=== PATIENT | female | born 1995 | race Hispanic/Latino ===

== ENCOUNTER 2016-11-10 13:34 | Inpatient (IN) | payer OTHER ==
[2016-11-10 13:34] VITALS: BMI 25.6
[2016-11-10] MEDS ORDERED: Sodium Chloride 0.9% 1,000 ML IV STA (14:36)
[2016-11-10 14:52] LABS: RBC URINE 2 /hpf (0-3); URINE BILIRUBIN NEGATIVE (NEGATIVE); URINE BLOOD NEGATIVE (NEGATIVE); URINE COLOR AMBER (YELLOW); URINE GLUCOSE (UA) NEG (Normal); URINE KETONE NEGATIVE (NEGATIVE); URINE LEUKOCYTE ESTERASE LARGE Leu/uL (Negative); URINE PROTEIN 100 mg/dL (NEGATIVE); URINE UROBILINOGEN 0.2-1.0 mg/dL (0.2-1.0); WBC URINE 14 /hpf (0-5)
[2016-11-10 15:09] LABS: VENOUS BLOOD GAS BASE EXCESS 0.5 mmol/L (0.0-2.0); VENOUS BLOOD GAS PCO2 50 mmHg (40-60); VENOUS BLOOD PH 7.34 (7.32-7.43)
[2016-11-10 15:23] LABS: ALB/GLOB RATIO 1.2 (1.0-2.1); ALKALINE PHOSPHATASE 123 U/L (38-126); ALT/SGPT 63 U/L (9-52); AST/SGOT 67 U/L (14-36); BILIRUBIN,TOTAL 0.4 mg/dl (0.2-1.3); BLOOD UREA NITROGEN 11 mg/dl (7-17); CARBON DIOXIDE 25 mmol/L (22-30); CHLORIDE 106 mmol/L (98-107); GFR AFRICAN-AMERICAN > 60; GLUCOSE,RANDOM 78 mg/dL (65-105); POTASSIUM 3.8 MMOL/L (3.6-5.0); SODIUM 145 mmol/l (132-148); TOTAL PROTEIN 7.8 G/DL (6.3-8.2)
[2016-11-10 15:30] LABS: BASO % 1.2 % (0.0-2.0); EOS % 1.6 % (0.0-4.0); LYMPH # 1.1 K/uL (1.0-4.3); LYMPH % 55.5 % (20.0-40.0); MEAN CELL VOLUME 76.7 fl (81.0-99.0); MEAN CORPUSCULAR HEMOGLOBIN 25.4 pg (27.0-31.0); MEAN CORPUSCULAR HGB CONC 33.1 g/dL (33.0-37.0); MEAN PLATELET VOLUME 8.6 fl (7.2-11.7); MONO # 0.2 K/uL (0.0-0.8); MONO % 8.7 % (0.0-10.0); NEUT # 0.6 K/uL (1.8-7.0); NRBC % 0.2 % (0.0-0.0); RED CELL DISTRIBUTION WIDTH 15.3 % (11.5-14.5)
[2016-11-10] MEDS ORDERED: cefTRIAXone (Rocephin) 1 gm Inj ONE (15:55)
--- NOTE | 2016-11-10 16:05 | CT ---
PROCEDURE: CT Abdomen and Pelvis without intravenous contrast HISTORY: flank pain, dysuria COMPARISON: None. TECHNIQUE: CT scan of the abdomen and pelvis was performed for targeted evaluation of urinary calculi without administration of oral or intravenous contrast. Coronal and sagittal reformatted images were obtained. Radiation dose: Total exam DLP = 650.64 mGy-cm. FINDINGS: LOWER THORAX: The lung bases are clear. LIVER: The liver is normal in size. There is no intrahepatic biliary ductal dilatation. GALLBLADDER AND BILE DUCTS: There are no calcified gallstones. PANCREAS: The pancreas is normal in size. SPLEEN: There is severe splenomegaly. The spleen measures 20.0 cm in craniocaudad dimension. There is a resultant mild mass effect on the lateral cortex of the left kidney. ADRENALS: Both adrenal glands are normal in size without discrete nodule. KIDNEYS AND URETERS: Both kidneys are normal in size.There is a punctate nonobstructing stone in the lower pole of the right kidney. There is no left nephrolithiasis. There is no hydronephrosis. The ureters are not dilated. VASCULATURE: The aorta is normal in caliber. BOWEL: The small bowel loops are normal in caliber. There is moderate amount of stool scattered throughout the colon. There is no evidence of bowel obstruction. APPENDIX: Normal appendix. PERITONEUM: No free fluid. No free air. LYMPH NODES: Unremarkable. No enlarged lymph nodes. BLADDER: Partially decompressed REPRODUCTIVE: The uterus is normal in size. There is small amount of fluid in the endometrial cavity. There are no adnexal masses. BONES: No acute fracture. OTHER FINDINGS: None. IMPRESSION: 1. Punctate nonobstructing stone in the lower pole of the right kidney. No hydronephrosis. No left nephrolithiasis. 2. Severe splenomegaly. Clinical correlation and follow-up is advised. 3. Small amount of fluid in the endometrial cavity, nonspecific. Please correlate with menstrual history.
--- NOTE | 2016-11-10 16:48 | ED PDOC ---
HPI: General Adult Time Seen by Provider: 11/10/16 14:14 Chief Complaint (Nursing): Abdominal Pain Chief Complaint (Provider): R flank pain History Per: Patient Additional Complaint(s): Pt. states for the past 3 days she's had atraumatic R flank pain associated with dysuria, dark urine, urinary frequency and urgency. Reports that she is HIV + and last viral load and CD4 count were done in 06/2016 and were WNL. States that she is compliant with her HIV medications. Past Medical History Reviewed: Historical Data, Nursing Documentation, Vital Signs Vital Signs: Last Vital Signs Temp 97.7 F 11/10/16 18:30 Pulse 52 L 11/10/16 18:41 Resp 18 11/10/16 18:41 BP 97/52 L 11/10/16 18:41 Pulse Ox 100 11/10/16 18:41 - Medical History PMH: Asthma, HIV, Pneumonia Denies: Chronic Kidney Disease - Family History Family History: States: No Known Family Hx - Home Medications Home Medications: Ambulatory Orders Medication Instructions Recorded Sulfamethoxazole/Trimethoprim 1 tab PO DAILY 06/26/16 [Bactrim DS Tab] Ibuprofen [Motrin] 600 mg PO Q6 PRN #30 tab 10/15/16 Elvitegr/Cobicist/Emtric/Tenof 1 tab PO DAILY 11/10/16 [Stribild Tablet] - Allergies Allergies/Adverse Reactions: Allergies Allergy/AdvReac Type Severity Reaction Status Date / Time No Known Allergies Allergy Verified 07/18/16 13:03 Review of Systems ROS Statement: Except As Marked, All Systems Reviewed And Found Negative Genitourinary Female: Positive for: Dysuria, Frequency Musculoskeletal: Positive for: Back Pain Physical Exam - Reviewed Nursing Documentation Reviewed: Yes Vital Signs Reviewed: Yes - Physical Exam Appears: Positive for: Well, Non-toxic, No Acute Distress Head Exam: Positive for: ATRAUMATIC, NORMAL INSPECTION, NORMOCEPHALIC Skin: Positive for: Normal Color, Warm, DRY Eye Exam: Positive for: EOMI, Normal appearance, PERRL ENT: Positive for: Normal ENT Inspection Neck: Positive for: Normal, Painless ROM Cardiovascular/Chest: Positive for: Regular Rate, Rhythm Respiratory: Positive for: CNT, Normal Breath Sounds Gastrointestinal/Abdominal: Positive for: Normal Exam, Bowel Sounds, Soft. Negative for: Tenderness Back: Positive for: Normal Inspection, R CVA Tenderness. Negative for: L CVA Tenderness Extremity: Positive for: Normal ROM Neurologic/Psych: Positive for: Alert, Oriented - Laboratory Results Result Diagrams: 11/10/16 15:00 11/10/16 15:00 - ECG O2 Sat by Pulse Oximetry: 100 - Progress ED Course And Treament: Labs ordered. CT abd/pelvis w/o contrast ordered. Blood culture x 2, urine culture ordered. Rocephin 1gm IV given due to UTI. CT abd/pelvis w/o contrast:1. Punctate nonobstructing stone in the lower pole of the right kidney. No hydronephrosis. No left nephrolithiasis. 2. Severe splenomegaly. Clinical correlation and follow-up is advised. 3. Small amount of fluid in the endometrial cavity, nonspecific. Please correlate with menstrual history. Previous WBC indicate that it is trending downward. Pt. evaluated by Dr. Harper in ED. Dr. Harper discussed case with Dr. Russell and arrangements made for admission. Disposition - Clinical Impression Clinical Impression: Pyelonephritis, Leukopenia - Patient ED Disposition Is Patient to be Admitted: Yes - Disposition Disposition Time: 17:16 Condition: STABLE
[2016-11-11] MEDS ORDERED: Sodium Chloride 0.9% 1,000 ML IV ONE (00:49)
[2016-11-11 07:09] LABS: BASO % 0.9 % (0.0-2.0); EOS % 2.3 % (0.0-4.0); HEMATOCRIT 29.5 % (34.0-47.0); LYMPH # 0.6 K/uL (1.0-4.3); LYMPH % 61.3 % (20.0-40.0); MEAN CELL VOLUME 75.9 fl (81.0-99.0); MEAN CORPUSCULAR HEMOGLOBIN 25.2 pg (27.0-31.0); MEAN CORPUSCULAR HGB CONC 33.2 g/dL (33.0-37.0); MEAN PLATELET VOLUME 8.6 fl (7.2-11.7); MONO # 0.1 K/uL (0.0-0.8); MONO % 11.7 % (0.0-10.0); NEUT # 0.3 K/uL (1.8-7.0); NEUT % 23.8 % (50.0-75.0); NRBC % 0.4 % (0.0-0.0); RED CELL DISTRIBUTION WIDTH 15.3 % (11.5-14.5)
[2016-11-11 07:18] LABS: ALKALINE PHOSPHATASE 96 U/L (38-126); ALT/SGPT 51 U/L (9-52); AST/SGOT 49 U/L (14-36); BILIRUBIN,TOTAL 0.4 mg/dl (0.2-1.3); BLOOD UREA NITROGEN 12 mg/dl (7-17); CALCIUM 7.8 mg/dL (8.4-10.2); CARBON DIOXIDE 20 mmol/L (22-30); CHLORIDE 111 mmol/L (98-107); GFR AFRICAN-AMERICAN > 60; GLUCOSE,RANDOM 96 mg/dL (65-105); POTASSIUM 3.6 MMOL/L (3.6-5.0); SODIUM 138 mmol/l (132-148); TOTAL PROTEIN 6.1 G/DL (6.3-8.2)
[2016-11-11 08:12] LABS: WHITE BLOOD COUNT 1.1 K/uL (4.8-10.8)
--- NOTE | 2016-11-11 13:19 | CP.PCM.CON ---
History of Present Illness - History of Present Illness History of Present Illness: 21 yo female with hx of HIV since admitted to [facility] with flank pain and dysuria denies fever or chills, no cough SOB, chest pain or headache Has been on stribild and Bactrim but doesnt recall T cells or viral load apparently misses her Meds frequently and sees dr ríos from [facility] on a monthly basis Found to have severe neutropenia Review of Systems - Constitutional Constitutional: absent: As Per HPI, Anorexia, Chills, Daytime Sleepiness, Excessive Sweating, Fatigue, Fever, Frequent Falls, Headache, Increased Appetite , Lethargy, Malaise, Night Sweats, Snoring, Sleep Apnea, Weight Gain, Weight Loss, Weakness, Other - EENT Eyes: absent: As Per HPI, Blind Spots, Blurred Vision, Change in Vision, Decreased Night Vision, Diplopia, Discharge, Dry Eye, Exophthalmos, Floaters, Irritation, Itchy Eyes, Loss of Peripheral Vision, Pain, Photophobia, Requires Corrective Lenses, Sees Flashes, Spots in Vision, Tunnel Vision, Other Visual Disturbances, Loss of Vision, Other Ears: absent: As Per HPI, Decreased Hearing, Ear Discharge, Ear Pain, Tinnitus, Abnormal Hearing, Disequilibrium, Dizziness, Other Nose/Mouth/Throat: absent: As Per HPI, Epistaxis, Nasal Congestion, Nasal Discharge, Nasal Obstruction, Nasal Trauma, Nose Pain, Post Nasal Drip, Sinus Pain, Sinus Pressure, Bleeding Gums, Change in Voice, Dental Pain, Dry Mouth, Dysphagia, Halitosis, Hoarsness, Lip Swelling, Mouth Lesions, Mouth Pain, Odynophagia, Sore Throat, Throat Swelling, Tongue Swelling, Facial Pain, Neck Pain, Neck Mass, Other - Breasts Breasts: absent: As Per HPI, Change in Shape, Mass, Pain, Nipple Discharge, Nipple Inversion, Skin Changes, Swelling, Other - Cardiovascular Cardiovascular: absent: As Per HPI, Acrocyanosis, Chest Pain, Chest Pain at Rest , Chest Pain with Activity, Claudication, Diaphoresis, Dyspnea, Dyspnea on Exertion, Edema, Irregular Heart Rhythm, Pain Radiating to Arm/Neck/Jaw, Leg Edema, Leg Ulcers, Lightheadedness, Orthopnea, Palpitations, Paroxysmal Nocturnal Dyspnea, Pedal Edema, Radiating Pain, Rapid Heart Rate, Slow Heart Rate, Syncope, Other - Respiratory Respiratory: absent: As Per HPI, Cough, Dyspnea, Hemoptysis, Dyspnea on Exertion , Wheezing, Snoring, Stridor, Pain on Inspiration, Chest Congestion, Excessive Mucous Production, Change in Mucous Color, Pain with Coughing, Other - Gastrointestinal Gastrointestinal: absent: As Per HPI, Abdominal Pain, Belching, Bloating, Change in Bowel Habits, Change in Stool Character, Coffee Ground Emesis, Constipation, Cramping, Diarrhea, Dyspepsia, Dysphagia, Early Satiety, Excessive Flatus, Fecal Incontinence, Heartburn, Hematemesis, Hematochezia, Loose Stools, Melena, Nausea, Odynophagia, Temesmus, Vomiting, Other - Genitourinary Genitourinary: As Per HPI, Dysuria, Urinary Urgency - Reproductive: Female Reproductive:Female: absent: As Per HPI, Amenorrhea, Amenorrhea/ Control, Currently Menstual, Cycle <21 Days, Cycle >35 Days, Cycle Variable, Menses 1-7 Days, Menses >/= 8 Days, Menses Variable, Cycle > 4 Weeks Between, No Menses for 6 Months, Heavy Menses, Light Menses, Normal Menses, Spotting Between Cycles , S/P Hysterectomy, Menopausal, Post Menopausal, Premenarche, Abnormal Vaginal Bleeding, Dysmenorrhea, Dyspareunia, Genital Lesions, Genital Pruritis, Pelvic Pain, Prolapse Symptoms, Sexual Dysfunction, Vaginal Discharge, Vaginal Dryness , Vaginal Odor, Vaginal Pruritis, Other - Menstruation Menstruation: absent: As Per HPI, Amenorrhea, Amenorrhea/ Control, Currently Menstual, Cycle <21 Days, Cycle >35 Days, Cycle Variable, Menses 1-7 Days, Menses >/= 8 Days, Menses Variable, Cycle > 4 Weeks Between, No Menses for 6 Months, Heavy Menses, Light Menses, Normal Menses, Spotting Between Cycles , S/P Hysterectomy, Menopausal, Post Menopausal, Premenarche, Abnormal Vaginal Bleeding, Dysmenorrhea, Other - Musculoskeletal Musculoskeletal: absent: As Per HPI, Abnormal Gait, Arthralgias, Atrophy, Back Pain, Deformity, Joint Swelling, Limited Range of Motion, Loss of Height, Muscle Cramps, Muscle Weakness, Myalgias, Neck Pain, Numbness, Radiating Pain into Limb, Stiffness, Tingling, Other - Integumentary Integumentary: absent: As Per HPI, Acne, Alopecia, Bleeding Lesions, Change in Hair, Change in Nails, Change in Pigmentation, Changing Lesions, Dry Skin, Erythema, Furuncle, Hirsutism, Lesions, New Lesions, Non-Healing Lesions, Photosensitivity, Pruritus, Rash, Skin Pain, Skin Ulcer, Sores, Striae, Swelling , Unusual Bruising, Wounds, Jaundice, Other - Neurological Neurological: absent: As Per HPI, Abnormal Gait, Abnormal Hearing, Abnormal Movements, Abnormal Speech, Behavioral Changes, Burning Sensations, Confusion, Convulsions, Disequilibrium, Dizziness, Numbness, Focal Weakness, Frequent Falls , Headaches, Lack of Coordination, Loss of Vision, Memory Loss, Paresthesias, Radicular Pain, Restless Legs, Sensory Deficit, Syncope, Tingling, Tremor, Vertigo, Weakness, Other Visual Disturbances, Other - Psychiatric Psychiatric: absent: As Per HPI, Abnormal Sleep Pattern, Anhedonia, Anxiety, Auditory Hallucinations, Behavioral Changes, Change in Appetite, Change in Libido, Confusion, Depression, Difficulty Concentrating, Hallucinations, Homicidal Ideation, Hopelessness, Irritability, Memory Loss, Mood Swings, Panic Attacks, Paranoia, Suicidal Ideation, Visual Hallucinations, Tactile Hallucinations, Other - Endocrine Endocrine: absent: As Per HPI, Change in Body Appearance, Change in Libido, Cold Intolorance, Deepening of Voice, Excessive Sweating, Fatigue, Flushing, Heat Intolorance, Increase in Ring/Shoe/Hat Size, Palpitations, Polydipsia, Polyphagia, Polyuria, Other - Hematologic/Lymphatic Hematologic: absent: As Per HPI, Easy Bleeding, Easy Bruising, Lymphadenopathy, Other Past Patient History - Infectious Disease Hx of Infectious Diseases: None - Past Medical History & Family History Past Medical History?: Yes - Past Social History Smoking Status: Never Smoked - CARDIAC Hx Cardiac Disorders: No - PULMONARY Hx Asthma: Yes Hx Pneumonia: Yes - NEUROLOGICAL Hx Neurological Disorder: No - HEENT Hx Macular Degeneration: No (denies) Other/Comment: wears eyeglasses - RENAL Hx Chronic Kidney Disease: No - ENDOCRINE/METABOLIC Hx Endocrine Disorders: No - HEMATOLOGICAL/ONCOLOGICAL Hx Human Immunodeficiency Virus (HIV): Yes - INTEGUMENTARY Hx Dermatological Problems: No - MUSCULOSKELETAL/RHEUMATOLOGICAL Hx Musculoskeletal Disorders: No Hx Falls: No - GENITOURINARY/GYNECOLOGICAL Hx Genitourinary Disorders: No - PSYCHIATRIC Hx Substance Use: No - SURGICAL HISTORY Hx Surgeries: Yes Hx Vascular Access Device: No Other/Comment: GT TUBE PLACEMENT AND REMOVAL - ANESTHESIA Hx Anesthesia: Yes Hx Anesthesia Reactions: No Meds Allergies/Adverse Reactions: Allergies Allergy/AdvReac Type Severity Reaction Status Date / Time No Known Allergies Allergy Verified 07/18/16 13:03 - Medications Medications: Current Medications Ceftriaxone Sodium 1 gm/ (Sodium Chloride) 100 mls @ 100 mls/hr IVPB DAILY NOMRAN Last Admin: 11/11/16 09:16 Dose: 100 mls/hr Physical Exam - Constitutional Appears: Non-toxic, Chronically Ill - Head Exam Head Exam: NORMOCEPHALIC - Eye Exam Eye Exam: PERRL. absent: Scleral icterus - ENT Exam ENT Exam: Mucous Membranes Dry, Normal Oropharynx - Neck Exam Neck exam: Negative for: Lymphadenopathy, Thyromegaly - Respiratory Exam Respiratory Exam: Decreased Breath Sounds, Clear to Auscultation Bilateral - Cardiovascular Exam Cardiovascular Exam: REGULAR RHYTHM, +S1, +S2 - GI/Abdominal Exam GI & Abdominal Exam: Diminished Bowel Sounds, Soft. absent: Tenderness - Rectal Exam Rectal Exam: Deferred - Exam Exam: NORMAL INSPECTION - Extremities Exam Extremities exam: Positive for: pedal pulses present. Negative for: calf tenderness, pedal edema, tenderness - Back Exam Back exam: CVA tenderness (R). absent: CVA tenderness (L), paraspinal tenderness - Neurological Exam Neurological exam: Alert, CN II-XII Intact, Oriented x3, Reflexes Normal - Psychiatric Exam Psychiatric exam: Normal Mood - Skin Skin Exam: Dry, Intact Results - Vital Signs Recent Vital Signs: Last Vital Signs Temp 99.1 F 11/11/16 09:00 Pulse 54 L 11/11/16 09:00 Resp 20 11/11/16 09:00 BP 138/81 11/11/16 09:00 Pulse Ox 99 11/11/16 09:00 - Labs Result Diagrams: 11/11/16 05:40 11/11/16 05:40 Assessment & Plan (1) Leukopenia Status: Acute (2) Pyelonephritis Status: Acute - Assessment and Plan (Free Text) Assessment: severe neutropenia- possibly secondary to gram neg infection , intercurrent viral nfection, medication toxicity, or primary hematologic problem ( Hx HIV / AIDS on stribild/ bactrim will need imaging eval cont iv antibiotics
[2016-11-11 15:49] VITALS: RESP 18
[2016-11-11] MEDS ORDERED: Atovaquone 750 mg/5 ml Susp UD PO SCH (17:00)
[2016-11-11] MEDS: Cefepime 1 GM in Sodium Chloride 0.9% 100 ML IVPB SCH (20:42)
--- NOTE | 2016-11-11 23:01 | CP.PCM.HP ---
Past Patient History - Infectious Disease Hx of Infectious Diseases: None - Past Medical History & Family History Past Medical History?: Yes - Past Social History Smoking Status: Never Smoked - CARDIAC Hx Cardiac Disorders: No - PULMONARY Hx Asthma: Yes Hx Pneumonia: Yes - NEUROLOGICAL Hx Neurological Disorder: No - HEENT Hx Macular Degeneration: No (denies) Other/Comment: wears eyeglasses - RENAL Hx Chronic Kidney Disease: No - ENDOCRINE/METABOLIC Hx Endocrine Disorders: No - HEMATOLOGICAL/ONCOLOGICAL Hx Human Immunodeficiency Virus (HIV): Yes - INTEGUMENTARY Hx Dermatological Problems: No - MUSCULOSKELETAL/RHEUMATOLOGICAL Hx Musculoskeletal Disorders: No Hx Falls: No - GENITOURINARY/GYNECOLOGICAL Hx Genitourinary Disorders: No - PSYCHIATRIC Hx Substance Use: No - SURGICAL HISTORY Hx Surgeries: Yes Hx Vascular Access Device: No Other/Comment: GT TUBE PLACEMENT AND REMOVAL - ANESTHESIA Hx Anesthesia: Yes Hx Anesthesia Reactions: No Meds Allergies/Adverse Reactions: Allergies Allergy/AdvReac Type Severity Reaction Status Date / Time No Known Allergies Allergy Verified 07/18/16 13:03 Results - Vital Signs Recent Vital Signs: Last Vital Signs Temp 98.5 F 11/11/16 20:17 Pulse 84 11/11/16 20:17 Resp 18 11/11/16 20:17 BP 101/65 11/11/16 20:17 Pulse Ox 96 11/11/16 20:17 - Labs Result Diagrams: 11/11/16 05:40 11/11/16 05:40
[2016-11-12 07:20] LABS: HEMATOCRIT 31.1 % (34.0-47.0); MEAN CELL VOLUME 75.7 fl (81.0-99.0); MEAN CORPUSCULAR HEMOGLOBIN 25.4 pg (27.0-31.0); MEAN CORPUSCULAR HGB CONC 33.5 g/dL (33.0-37.0); RED CELL DISTRIBUTION WIDTH 15.3 % (11.5-14.5)
[2016-11-12 07:39] LABS: ALKALINE PHOSPHATASE 108 U/L (38-126); ALT/SGPT 56 U/L (9-52); AST/SGOT 59 U/L (14-36); BILIRUBIN,TOTAL 0.3 mg/dl (0.2-1.3); BLOOD UREA NITROGEN 9 mg/dl (7-17); CALCIUM 8.2 mg/dL (8.4-10.2); CARBON DIOXIDE 23 mmol/L (22-30); CHLORIDE 107 mmol/L (98-107); GFR AFRICAN-AMERICAN > 60; GLUCOSE,RANDOM 81 mg/dL (65-105); POTASSIUM 3.8 MMOL/L (3.6-5.0); SODIUM 137 mmol/l (132-148); TOTAL PROTEIN 6.6 G/DL (6.3-8.2); WHITE BLOOD COUNT 1.9 K/uL (4.8-10.8)
[2016-11-12 08:38] VITALS: BP 95/51; PULSE 71; TEMP 98.1; O2SAT 98
[2016-11-12] MEDS: Cefepime 1 GM in Sodium Chloride 0.9% 100 ML IVPB SCH (09:16)
--- NOTE | 2016-11-12 23:54 | CP.PCM.PN ---
Objective - Vital Signs/Intake and Output Vital Signs (last 24 hours): Temp Pulse Resp BP Pulse Ox 98.1 F 71 18 95/51 L 98 11/12/16 08:37 11/12/16 08:37 11/12/16 08:37 11/12/16 08:37 11/12/16 08:37 - Labs Labs: 11/12/16 06:00 11/12/16 06:00
--- NOTE | 2016-11-14 10:19 | CARD ---
APPROVED REPORT EKG Measurement Heart [id number] <Conclusion> Sinus bradycardia with sinus arrhythmia Otherwise normal ECG
== END 2016-11-12 12:30 | disposition home or self-care (01) | DRG 321 ==
LOC: H.ER 13:34 → H.ERHOLD 17:16 → H.MEDSURG1 18:55 → OBSVTOIN 11-11 11:27
PROVIDERS: ADMIT Internal Medicine; ATTEND Internal Medicine
DX: N12 Tubulo-interstitial nephritis, not specified as acute or chronic (principal); D70.9 Neutropenia, unspecified; J45.909 Unspecified asthma, uncomplicated; R16.1 Splenomegaly, not elsewhere classified; N20.0 Calculus of kidney; Z21 Asymptomatic human immunodeficiency virus [HIV] infection status

== ENCOUNTER 2016-12-19 12:44 | Inpatient (IN) | payer MEDICARE, OTHER ==
[2016-12-19 12:44] VITALS: BMI 25.6
--- NOTE | 2016-12-19 13:52 | ED PDOC ---
HPI: General Adult Time Seen by Provider: 12/19/16 12:52 Chief Complaint (Nursing): Flu-like Symptoms Chief Complaint (Provider): Fever History Per: Patient History/Exam Limitations: no limitations Onset/Duration Of Symptoms: Days (x2 days) Have you had recent travel within the past 21 days to any of the following countries: [place], [place], [place] or [place]?: No Current Symptoms Are (Timing): Still Present Severity: Moderate Additional Complaint(s): An Moore is a 21 year old female, with a past medical history of HIV from , asthma, and pneumonia, who presents to the emergency department for the evaluation of a fever, hand and foot pain and swelling and decreased PO intake x 2 days. Pt denies any chest pain or SOB, no abdominal pain, nausea, vomiting, diarrhea or urinary complaints. No coughing, mild nasal congestion noted. Of note, patient took no medications for her symptoms prior to arrival; however , she is currently on medication for her HIV, but does not know the name for it. PMD: out of area Past Medical History Reviewed: Historical Data, Nursing Documentation, Vital Signs Vital Signs: Last Vital Signs Temp 99.8 F H 12/19/16 16:00 Pulse 102 H 12/19/16 16:00 Resp 18 12/19/16 16:00 BP 127/71 12/19/16 16:00 Pulse Ox 100 12/19/16 17:27 - Medical History PMH: Asthma, HIV, Pneumonia Denies: Chronic Kidney Disease - Family History Family History: States: No Known Family Hx - Social History Current smoker - smoking cessation education provided: No Ex-Smoker (has not smoked in the last 12 months): No Alcohol: None Drugs: Denies - Home Medications Home Medications: Ambulatory Orders Medication Instructions Recorded Elvitegr/Cobicist/Emtric/Tenof 1 tab PO DAILY 11/10/16 [Stribild Tablet] - Allergies Allergies/Adverse Reactions: Allergies Allergy/AdvReac Type Severity Reaction Status Date / Time No Known Allergies Allergy Verified 12/19/16 12:49 Review of Systems ROS Statement: Except As Marked, All Systems Reviewed And Found Negative Constitutional: Positive for: Fever, Other (myalgias) ENT: Positive for: Nose Congestion Cardiovascular: Positive for: Edema (b/l hands and feet) Gastrointestinal: Positive for: Other (decreased PO intake) Skin: Positive for: Rash (b/l hands and to cheeks) Physical Exam - Reviewed Nursing Documentation Reviewed: Yes Vital Signs Reviewed: Yes - Physical Exam Appears: Positive for: Non-toxic, No Acute Distress Head Exam: Positive for: ATRAUMATIC, NORMAL INSPECTION (erythema b/l cheeks), NORMOCEPHALIC Skin: Positive for: Normal Color, Warm, Rash (b/l hands and face) Eye Exam: Positive for: Normal appearance, EOMI, PERRL, Periorbital swelling ENT: Positive for: Normal ENT Inspection, Nasal Congestion. Negative for: Pharyngeal Erythema, Tonsillar Exudate, Tonsillar Swelling Cardiovascular/Chest: Positive for: Regular Rate, Rhythm. Negative for: Murmur Respiratory: Positive for: Normal Breath Sounds. Negative for: Respiratory Distress Gastrointestinal/Abdominal: Positive for: Normal Exam, Soft. Negative for: Tenderness Extremity: Positive for: Normal ROM, Swelling (b/l hands and dorsal aspects of b /l feet, also inclusive of erythematous symptoms). Negative for: Tenderness Neurologic/Psych: Positive for: Alert, Oriented - Laboratory Results Result Diagrams: 12/19/16 14:05 12/19/16 14:05 - ECG O2 Sat by Pulse Oximetry: 100 (RA) Pulse Ox Interpretation: Normal Medical Decision Making Medical Decision Makin:52 Initial Impression: fever, myalgias, rash, r/o sepsis Initial Plan: * Chest X-Ray * EKG * Venous Blood Gas Shock Panel (x2) * CBC * CMP * PT/PTT * ESR * Blood Culture * Urinalysis * Urine Culture * Magnesium * Phosphorous * Sodium Chloride 0.9% 1,000 ml IV at 150 mls/hr * ED Observation 13:37 Patient will be placed within ED Observation secondary to time-extensive ED workup. Pending imaging studies and labs. See Observation note for further updates. Repeat temp: 99.8 Pt noted to be neutropenic and febrile, no obvious source. Labs resulted and reviewed with Pt who demonstrated full understanding Case discussed with ED MD who agreed with admission at this time. Dr. guillory , med on-call, physican contated and case discussed. Arrangements made for admission. Requested ID to be consulted. Dr. Martinez contacted and case discussed. IV Rocephin requested. On second re-eval, pt reports facial pain and pressure and headache. No neck pain or stiffness. No photophobia. FROM on re-eval, (-) kernigs and brudsinski tests. CT scan of Sinuses and Head ordered, Dr. Guillory made aware testing was ordered and Pt will be taken to floor. , Dr. guillory will follow results. Scribe Attestation: Documented by Yair Duran, acting as a scribe for SARI Gooden. Provider Scribe Attestation: All medical record entries made by the Scribe were at my direction and personally dictated by me. I have reviewed the chart and agree that the record accurately reflects my personal performance of the history, physical exam, medical decision making, and the department course for this patient. I have also personally directed, reviewed, and agree with the discharge instructions and disposition. ED OBSERVATION Date of observation admission: 12/19/16 Time of observation admission: 13:37 - Observation admission statement Patient is being placed in observation because:: Secondary to time-extensive ED workup. - Goals of Observation Goals of observation are:: Pending imaging studies and labs. Disposition - Clinical Impression Clinical Impression: Leukopenia, Fever, HIV (human immunodeficiency virus infection) - Patient ED Disposition Is Patient to be Admitted: Yes - Disposition Disposition Time: 18:05 Condition: STABLE - Pt Status Changed To: Hospital Disposition Of: Inpatient - Admit Certification Admit to Inpatient:: After my assessment, the patient will require hospitalization for at least two midnights. This is because of the severity of symptoms shown, intensity of services needed, and/or the medical risk in this patient being treated as an outpatient. - POA Present On Arrival: None
[2016-12-19 14:15] LABS: VENOUS BLOOD GAS BASE EXCESS -0.8 mmol/L (0.0-2.0); VENOUS BLOOD GAS PCO2 41 mmHg (40-60); VENOUS BLOOD PH 7.38 (7.32-7.43)
[2016-12-19] MEDS: Sodium Chloride 0.9% 1,000 ML IV SCH (14:17)
[2016-12-19 14:21] LABS: RBC URINE 3 /hpf (0-3); URINE BACTERIA RARE (<OCC); URINE BILIRUBIN NEGATIVE (NEGATIVE); URINE BLOOD NEGATIVE (NEGATIVE); URINE COLOR YELLOW (YELLOW); URINE GLUCOSE (UA) NEG (Normal); URINE KETONE NEGATIVE (NEGATIVE); URINE LEUKOCYTE ESTERASE SMALL Leu/uL (Negative); URINE PROTEIN 100 mg/dL (NEGATIVE); URINE UROBILINOGEN 0.2-1.0 mg/dL (0.2-1.0); WBC URINE 6 /hpf (0-5)
[2016-12-19 14:26] LABS: ALB/GLOB RATIO 1.1 (1.0-2.1); ALKALINE PHOSPHATASE 109 U/L (38-126); ALT/SGPT 48 U/L (9-52); AST/SGOT 78 U/L (14-36); BILIRUBIN,TOTAL 0.5 mg/dl (0.2-1.3); BLOOD UREA NITROGEN 10 mg/dl (7-17); CALCIUM 8.5 mg/dL (8.4-10.2); CARBON DIOXIDE 23 mmol/L (22-30); CHLORIDE 106 mmol/L (98-107); GFR AFRICAN-AMERICAN > 60; GLUCOSE,RANDOM 79 mg/dL (65-105); MAGNESIUM 1.7 MG/DL (1.6-2.3); PHOSPHOROUS 3.3 mg/dl (2.5-4.5); POTASSIUM 3.8 MMOL/L (3.6-5.0); SODIUM 141 mmol/l (132-148); TOTAL PROTEIN 7.2 G/DL (6.3-8.2)
[2016-12-19 14:27] LABS: PARTIAL THROMBOPLASTIN TIME 30.2 SECONDS (23.3-32.5)
[2016-12-19 15:24] LABS: BASO % 0.8 % (0.0-2.0); EOS # 0.1 K/uL (0.0-0.7); EOS % 2.3 % (0.0-4.0); HEMATOCRIT 32.2 % (34.0-47.0); LYMPH # 0.6 K/uL (1.0-4.3); LYMPH % 24.7 % (20.0-40.0); MEAN CELL VOLUME 76.1 fl (81.0-99.0); MEAN CORPUSCULAR HEMOGLOBIN 25.5 pg (27.0-31.0); MEAN CORPUSCULAR HGB CONC 33.5 g/dL (33.0-37.0); MONO # 0.2 K/uL (0.0-0.8); MONO % 6.9 % (0.0-10.0); NEUT # 1.5 K/uL (1.8-7.0); NEUT % 65.3 % (50.0-75.0); RED CELL DISTRIBUTION WIDTH 15.8 % (11.5-14.5); WHITE BLOOD COUNT 2.4 K/uL (4.8-10.8)
--- NOTE | 2016-12-19 15:26 | RAD ---
HISTORY: Sepsis Patient COMPARISON: Chest x-ray performed 07/18/16 TECHNIQUE: Chest, one view. FINDINGS: LUNGS: No focal consolidation. Please note that chest x-ray has limited sensitivity for the detection of pulmonary masses. PLEURA: No significant pleural effusion identified. No definite pneumothorax . CARDIOVASCULAR: The cardiomediastinal silhouette appears within normal limits of size. OSSEOUS STRUCTURES: No acute osseous abnormality identified. VISUALIZED UPPER ABDOMEN: Unremarkable. OTHER FINDINGS: None. IMPRESSION: No focal consolidation, significant pleural effusion, or definite pneumothorax identified.
[2016-12-19] MEDS ORDERED: cefTRIAXone (Rocephin) 1 gm Inj ONE (16:01)
[2016-12-19] MEDS: Dextrose 5%/0.45% NS 1,000 ML IV SCH (19:29)
--- NOTE | 2016-12-19 21:24 | CT ---
EXAM: CT Head Without Intravenous Contrast CLINICAL HISTORY: 21 years old, female; Signs and symptoms; Fever; Additional info: Headache. Sent phy. Doc. With request TECHNIQUE: Axial computed tomography images of the head/brain without intravenous contrast. This CT exam was performed using one or more of the following dose reduction techniques: automated exposure control, adjustment of the mA and/or kV according to patient size, and/or use of iterative reconstruction technique. Coronal and sagittal reformatted images were created and reviewed. COMPARISON: CT - HEAD W/O CONTRAST 04/30/2016 9:09:38 PM FINDINGS: Brain: No intracranial hemorrhage. No mass. No definite edema. Ventricles: No hydrocephalus. Bones/joints: No calvarial fracture. Soft tissues: Unremarkable. Mastoid air cells: No mastoid effusion. IMPRESSION: 1. No acute intracranial abnormality. 2. See sinus CT report for additional details. 3. Incidental/non-acute findings are described above.
--- NOTE | 2016-12-19 21:27 | CT ---
EXAM: CT Maxillofacial Sinuses Without Intravenous Contrast CLINICAL HISTORY: 21 years old, female; Signs and symptoms; Fever; Additional info: Sinus pain and pressure. Sent phy. Doc. With request TECHNIQUE: Computed tomography images of the maxillofacial sinuses without intravenous contrast. This CT exam was performed using one or more of the following dose reduction techniques: automated exposure control, adjustment of the mA and/or kV according to patient size, and/or use of iterative reconstruction technique. Coronal and sagittal reformatted images were created and reviewed. COMPARISON: CT - HEAD W/O CONTRAST 04/30/2016 9:09:38 PM FINDINGS: Maxillary sinuses: Moderate mucosal thickening of maxillary sinuses. Air-fluid levels. Sphenoid sinuses: Mild mucosal thickening of sphenoid sinuses. No air-fluid levels. Frontal sinuses: Minimal thickening of frontal sinuses. No air-fluid levels. Ethmoid air cells: Mild mucosal thickening of ethmoid sinuses. No air-fluid levels. Nasal cavity/septum: No acute findings. Bones/joints: No acute fracture. Soft tissues: Unremarkable. Orbits: Unremarkable as visualized. IMPRESSION: 1. Sinus disease as above. 2. Incidental/non-acute findings are described above.
[2016-12-20 07:19] LABS: HEMATOCRIT 28.4 % (34.0-47.0); MEAN CELL VOLUME 75.5 fl (81.0-99.0); MEAN CORPUSCULAR HGB CONC 34.4 g/dL (33.0-37.0); RED CELL DISTRIBUTION WIDTH 15.8 % (11.5-14.5)
[2016-12-20] MEDS: Dextrose 5%/0.45% NS 1,000 ML IV SCH ×2 (07:49→16:01)
[2016-12-20 07:56] LABS: ALKALINE PHOSPHATASE 90 U/L (38-126); ALT/SGPT 47 U/L (9-52); AST/SGOT 77 U/L (14-36); BILIRUBIN,TOTAL 0.3 mg/dl (0.2-1.3); BLOOD UREA NITROGEN 10 mg/dl (7-17); CALCIUM 7.7 mg/dL (8.4-10.2); CARBON DIOXIDE 23 mmol/L (22-30); CHLORIDE 109 mmol/L (98-107); GFR AFRICAN-AMERICAN > 60; GLUCOSE,RANDOM 78 mg/dL (65-105); POTASSIUM 3.7 MMOL/L (3.6-5.0); SODIUM 143 mmol/l (132-148); TOTAL PROTEIN 6.1 G/DL (6.3-8.2)
[2016-12-20 08:05] LABS: WHITE BLOOD COUNT 1.9 K/uL (4.8-10.8)
--- NOTE | 2016-12-20 08:29 | CARD ---
APPROVED REPORT EKG Measurement Heart [id number] <Conclusion> Sinus tachycardia Nonspecific T wave abnormality Abnormal ECG
[2016-12-20] MEDS: Enoxaparin 30 mg Syringe SC SCH ×2 (08:55→08:59)
--- NOTE | 2016-12-20 10:32 | HP ---
ADMITTING HISTORY AND PHYSICAL HISTORY OF PRESENT ILLNESS: The patient is a 21-year-old female who was admitted via the Emergency R oom because of fever, chills, and body aches and pains, especially the hand and feet with some swelli ng and decreased oral intake for the past several days prior to presentation. She presented to the [facility] where she was admitted for workup and therapy of fever with chills and leukopenia. PAST MEDICAL HISTORY: HIV infection since . She also has asthma and pneumonia in the past. Bernardo chin is followed by a doctor that is out of the area. FAMILY HISTORY: Unremarkable. SOCIAL HISTORY: Socially, she does not smoke or drink, and presently is unemployed. MEDICATIONS: Include elvitegravir combination, which is Stribild, and Bactrim. PHYSICAL EXAMINATION: GENERAL: The patient is alert and oriented, still feels flushed and warm, but denies headache, chest pain, shortness of breath, or cough. VITAL SIGNS: Blood pressure 99/65 with a pulse of 80, respiratory rate 20. She is afebrile this a.m . to low-grade temperature of 99 degrees Fahrenheit. Temperature on admission was 100.3 degrees Fahr enheit. SKIN: Shows fair turgor, but feels flushed. Mouth shows fair hygiene. HEENT: Pupils are equal and react to light and accommodation. NECK: JVP flat. LUNGS: Clear. HEART: Regular. No murmurs or gallops. ABDOMEN: Soft, nontender. No organomegaly. EXTREMITIES: Show no edema or cyanosis. GENITAL AND RECTAL: Deferred. CENTRAL NERVOUS SYSTEM: Grossly intact. HEAD: Incidentally noted, the patient has tenderness of the sinuses with mucous engorgement of phary nx. LABORATORY DATA: Remarkable for WBC of 1.9, hemoglobin 9.8, platelet count of 143,000. Sodium 143, potassium 3.7, BUN of 10, creatinine 0.6. AST 77. Venous blood gas showed a pH of 7.38, pCO2 of 41 , pO2 of 22, lactate 1.1. CT scan of the head was remarkable for sinusitis. Chest x-ray: No apparent cardiopulmonary pathology. IMPRESSION: Fever in a patient who is human immunodeficiency virus positive with sinusitis and leuko penia, appears to be sepsis. PLAN: Infectious disease evaluation, hematology evaluation, IV hydration, analgesics for pain. Woul d probably need Neupogen therapy because of leukopenia. Antiretroviral medication already started. We will continue therapy as ordered. Anuel Guillory MD cc: [id number] TT: 12/20/2016 10:31:33 lino
--- NOTE | 2016-12-20 11:06 | CP.PCM.CON ---
History of Present Illness - History of Present Illness History of Present Illness: 21 year old female, with a past medical history of HIV from , asthma, and pneumonia, who presents to the emergency department for the evaluation of a fever, hand and foot pain and swelling and decreased PO intake x 2 days. Pt denies any chest pain or SOB, no abdominal pain, nausea, vomiting, diarrhea or urinary complaints. No coughing, mild nasal congestion noted. last here for uti now admitted with fever rash and swelling + neutropenia r/o viral etiology ? Parvo, CMV , will check bacterial cultures, serologies, T cells and viral load Of note, patient took no medications for her symptoms prior to arrival; however , she is currently on medication for her HIV, but does not know the name for it. PMD: out of area Review of Systems - Constitutional Constitutional: As Per HPI - EENT Eyes: absent: As Per HPI, Blind Spots, Blurred Vision, Change in Vision, Decreased Night Vision, Diplopia, Discharge, Dry Eye, Exophthalmos, Floaters, Irritation, Itchy Eyes, Loss of Peripheral Vision, Pain, Photophobia, Requires Corrective Lenses, Sees Flashes, Spots in Vision, Tunnel Vision, Other Visual Disturbances, Loss of Vision, Other Ears: absent: As Per HPI, Decreased Hearing, Ear Discharge, Ear Pain, Tinnitus, Abnormal Hearing, Disequilibrium, Dizziness, Other Nose/Mouth/Throat: absent: As Per HPI, Epistaxis, Nasal Congestion, Nasal Discharge, Nasal Obstruction, Nasal Trauma, Nose Pain, Post Nasal Drip, Sinus Pain, Sinus Pressure, Bleeding Gums, Change in Voice, Dental Pain, Dry Mouth, Dysphagia, Halitosis, Hoarsness, Lip Swelling, Mouth Lesions, Mouth Pain, Odynophagia, Sore Throat, Throat Swelling, Tongue Swelling, Facial Pain, Neck Pain, Neck Mass, Other - Breasts Breasts: absent: As Per HPI, Change in Shape, Mass, Pain, Nipple Discharge, Nipple Inversion, Skin Changes, Swelling, Other - Cardiovascular Cardiovascular: absent: As Per HPI, Acrocyanosis, Chest Pain, Chest Pain at Rest , Chest Pain with Activity, Claudication, Diaphoresis, Dyspnea, Dyspnea on Exertion, Edema, Irregular Heart Rhythm, Pain Radiating to Arm/Neck/Jaw, Leg Edema, Leg Ulcers, Lightheadedness, Orthopnea, Palpitations, Paroxysmal Nocturnal Dyspnea, Pedal Edema, Radiating Pain, Rapid Heart Rate, Slow Heart Rate, Syncope, Other - Respiratory Respiratory: absent: As Per HPI, Cough, Dyspnea, Hemoptysis, Dyspnea on Exertion , Wheezing, Snoring, Stridor, Pain on Inspiration, Chest Congestion, Excessive Mucous Production, Change in Mucous Color, Pain with Coughing, Other - Gastrointestinal Gastrointestinal: absent: As Per HPI, Abdominal Pain, Belching, Bloating, Change in Bowel Habits, Change in Stool Character, Coffee Ground Emesis, Constipation, Cramping, Diarrhea, Dyspepsia, Dysphagia, Early Satiety, Excessive Flatus, Fecal Incontinence, Heartburn, Hematemesis, Hematochezia, Loose Stools, Melena, Nausea, Odynophagia, Temesmus, Vomiting, Other - Genitourinary Genitourinary: absent: As Per HPI, Change in Urinary Stream, Difficulty Urinating, Dysuria, Flank Pain, Hematuria, Pyuria, Nocturia, Urinary Incontinence, Urinary Frequency, Urinary Hesitance, Urinary Urgency, Voiding Freq/Small Amts, Freq UTI, Hx Renal/Bladder Calculi, Hx /Renal Surgery, Bladder Distension, Other - Reproductive: Female Reproductive:Female: absent: As Per HPI, Amenorrhea, Amenorrhea/ Control, Currently Menstual, Cycle <21 Days, Cycle >35 Days, Cycle Variable, Menses 1-7 Days, Menses >/= 8 Days, Menses Variable, Cycle > 4 Weeks Between, No Menses for 6 Months, Heavy Menses, Light Menses, Normal Menses, Spotting Between Cycles , S/P Hysterectomy, Menopausal, Post Menopausal, Premenarche, Abnormal Vaginal Bleeding, Dysmenorrhea, Dyspareunia, Genital Lesions, Genital Pruritis, Pelvic Pain, Prolapse Symptoms, Sexual Dysfunction, Vaginal Discharge, Vaginal Dryness , Vaginal Odor, Vaginal Pruritis, Other - Menstruation Menstruation: absent: As Per HPI, Amenorrhea, Amenorrhea/ Control, Currently Menstual, Cycle <21 Days, Cycle >35 Days, Cycle Variable, Menses 1-7 Days, Menses >/= 8 Days, Menses Variable, Cycle > 4 Weeks Between, No Menses for 6 Months, Heavy Menses, Light Menses, Normal Menses, Spotting Between Cycles , S/P Hysterectomy, Menopausal, Post Menopausal, Premenarche, Abnormal Vaginal Bleeding, Dysmenorrhea, Other - Musculoskeletal Musculoskeletal: As Per HPI - Integumentary Integumentary: As Per HPI - Neurological Neurological: absent: As Per HPI, Abnormal Gait, Abnormal Hearing, Abnormal Movements, Abnormal Speech, Behavioral Changes, Burning Sensations, Confusion, Convulsions, Disequilibrium, Dizziness, Numbness, Focal Weakness, Frequent Falls , Headaches, Lack of Coordination, Loss of Vision, Memory Loss, Paresthesias, Radicular Pain, Restless Legs, Sensory Deficit, Syncope, Tingling, Tremor, Vertigo, Weakness, Other Visual Disturbances, Other - Psychiatric Psychiatric: absent: As Per HPI, Abnormal Sleep Pattern, Anhedonia, Anxiety, Auditory Hallucinations, Behavioral Changes, Change in Appetite, Change in Libido, Confusion, Depression, Difficulty Concentrating, Hallucinations, Homicidal Ideation, Hopelessness, Irritability, Memory Loss, Mood Swings, Panic Attacks, Paranoia, Suicidal Ideation, Visual Hallucinations, Tactile Hallucinations, Other - Endocrine Endocrine: absent: As Per HPI, Change in Body Appearance, Change in Libido, Cold Intolorance, Deepening of Voice, Excessive Sweating, Fatigue, Flushing, Heat Intolorance, Increase in Ring/Shoe/Hat Size, Palpitations, Polydipsia, Polyphagia, Polyuria, Other - Hematologic/Lymphatic Hematologic: absent: As Per HPI, Easy Bleeding, Easy Bruising, Lymphadenopathy, Other Past Patient History - Infectious Disease Hx of Infectious Diseases: None - Past Medical History & Family History Past Medical History?: Yes - Past Social History Smoking Status: Tried once - CARDIAC Hx Cardiac Disorders: No - PULMONARY Hx Asthma: Yes Hx Pneumonia: Yes - NEUROLOGICAL Hx Neurological Disorder: No - HEENT Hx Macular Degeneration: No (denies) Other/Comment: wears eyeglasses - RENAL Hx Chronic Kidney Disease: No - ENDOCRINE/METABOLIC Hx Endocrine Disorders: No - HEMATOLOGICAL/ONCOLOGICAL Hx Human Immunodeficiency Virus (HIV): Yes - INTEGUMENTARY Hx Dermatological Problems: No - MUSCULOSKELETAL/RHEUMATOLOGICAL Hx Musculoskeletal Disorders: No Hx Falls: No - GENITOURINARY/GYNECOLOGICAL Hx Genitourinary Disorders: No - PSYCHIATRIC Hx Psychophysiologic Disorder: No Hx Substance Use: No - SURGICAL HISTORY Hx Surgeries: Yes Hx Vascular Access Device: No Other/Comment: GT TUBE PLACEMENT AND REMOVAL - ANESTHESIA Hx Anesthesia: Yes Hx Anesthesia Reactions: No Meds Allergies/Adverse Reactions: Allergies Allergy/AdvReac Type Severity Reaction Status Date / Time No Known Allergies Allergy Verified 12/19/16 12:49 - Medications Medications: Current Medications Acetaminophen (Tylenol 325mg Tab) 650 mg PO Q4 PRN PRN Reason: Pain, moderate (4-7) Acetaminophen (Tylenol 325mg Tab) 650 mg PO Q4 PRN PRN Reason: Fever >100.4 F Last Admin: 12/19/16 18:30 Dose: 650 mg Diphenhydramine HCl (Benadryl) 50 mg PO Q6 PRN PRN Reason: Itching / Pruritus Last Admin: 12/20/16 03:50 Dose: 50 mg Enoxaparin Sodium (Lovenox) 30 mg SC DAILY [facility] PRN Reason: Protocol Last Admin: 12/20/16 08:59 Dose: Not Given Home Med (Elvitegr/Cobicist/Emtric/Tenof [Stribild Tablet]) 1 tab PO DAILY [facility] Sodium Chloride (Sodium Chloride 0.9%) 1,000 mls @ 150 mls/hr IV .Q6H40M [facility] Last Admin: 12/19/16 14:17 Dose: 150 mls/hr Levofloxacin/Dextrose (Levaquin 500mg) 100 mls @ 100 mls/hr IVPB DAILY [facility] Last Admin: 12/20/16 08:54 Dose: 100 mls/hr Dextrose/Sodium Chloride (Dextrose 5%/0.45% Ns 1000 Ml) 1,000 mls @ 100 mls/hr IV .Q10H [facility] Stop: 12/20/16 18:16 Last Admin: 12/20/16 07:49 Dose: Not Given Ceftriaxone Sodium 1 gm/ (Sodium Chloride) 100 mls @ 100 mls/hr IVPB DAILY [facility] Last Admin: 12/20/16 08:54 Dose: 100 mls/hr Physical Exam - Constitutional Appears: Non-toxic, Chronically Ill - Head Exam Head Exam: NORMOCEPHALIC - Eye Exam Eye Exam: PERRL. absent: Scleral icterus - ENT Exam ENT Exam: Mucous Membranes Dry - Neck Exam Neck exam: Negative for: Lymphadenopathy - Respiratory Exam Respiratory Exam: Decreased Breath Sounds, Clear to Auscultation Bilateral - Cardiovascular Exam Cardiovascular Exam: REGULAR RHYTHM, +S1, +S2 - GI/Abdominal Exam GI & Abdominal Exam: Diminished Bowel Sounds, Soft. absent: Tenderness - Rectal Exam Rectal Exam: Deferred - Exam Exam: NORMAL INSPECTION - Extremities Exam Extremities exam: Positive for: pedal edema, tenderness. Negative for: calf tenderness, pedal pulses present - Back Exam Back exam: absent: CVA tenderness (L), CVA tenderness (R) - Neurological Exam Neurological exam: Alert, CN II-XII Intact, Oriented x3, Reflexes Normal - Psychiatric Exam Psychiatric exam: Normal Mood - Skin Skin Exam: Dry, Intact Results - Vital Signs Recent Vital Signs: Last Vital Signs Temp 99.4 F 12/20/16 07:00 Pulse 80 12/20/16 07:00 Resp 20 12/20/16 07:00 BP 99/65 L 12/20/16 07:00 Pulse Ox 99 12/20/16 07:00 - Labs Result Diagrams: 12/20/16 06:30 12/20/16 06:30 Assessment & Plan (1) Fever Status: Acute (2) Leukopenia Status: Acute (3) HIV (human immunodeficiency virus infection) Status: Chronic (4) Bronchitis Status: Acute (5) Cellulitis Status: Acute (6) Concussion Status: Acute (7) DVT prophylaxis Status: Acute (8) Head injury Status: Acute
[2016-12-20 22:54] LABS: FOLATE 10.1 ng/mL
--- NOTE | 2016-12-21 03:43 | CP.PCM.CON ---
History of Present Illness - History of Present Illness History of Present Illness: 21 year old female with a history of asthma, HIV from , admitted with fever , rash, and swelling, found to have leukopenia and anemia. The patient denies abnormal blood counts in the past. She denies abnormal bleeding and bruising. She does admit to subjective fevers and chills but denies night sweats. Past medical history: asthma, HIV Past surgical history: None Family history: Denies hematologic and oncologic problems Social history: Denies tobacco, alcohol, and illicit drug use. Allergies: NKA Review of systems: All remaining review of systems incluidng HEENT, cardiovascular, respiratory, gastrointestinal, genitourinary, musculoskeletal, dermatologic, neurologic, and psychiatric are negative unless mentioned in the HPI. Past Patient History - Infectious Disease Hx of Infectious Diseases: None - Past Medical History & Family History Past Medical History?: Yes - Past Social History Smoking Status: Tried once - CARDIAC Hx Cardiac Disorders: No - PULMONARY Hx Asthma: Yes Hx Pneumonia: Yes - NEUROLOGICAL Hx Neurological Disorder: No - HEENT Hx Macular Degeneration: No (denies) Other/Comment: wears eyeglasses - RENAL Hx Chronic Kidney Disease: No - ENDOCRINE/METABOLIC Hx Endocrine Disorders: No - HEMATOLOGICAL/ONCOLOGICAL Hx Human Immunodeficiency Virus (HIV): Yes - INTEGUMENTARY Hx Dermatological Problems: No - MUSCULOSKELETAL/RHEUMATOLOGICAL Hx Musculoskeletal Disorders: No Hx Falls: No - GENITOURINARY/GYNECOLOGICAL Hx Genitourinary Disorders: No - PSYCHIATRIC Hx Psychophysiologic Disorder: No Hx Substance Use: No - SURGICAL HISTORY Hx Surgeries: Yes Hx Vascular Access Device: No Other/Comment: GT TUBE PLACEMENT AND REMOVAL - ANESTHESIA Hx Anesthesia: Yes Hx Anesthesia Reactions: No Meds Allergies/Adverse Reactions: Allergies Allergy/AdvReac Type Severity Reaction Status Date / Time No Known Allergies Allergy Verified 12/19/16 12:49 - Medications Medications: Current Medications Acetaminophen (Tylenol 325mg Tab) 650 mg PO Q4 PRN PRN Reason: Pain, moderate (4-7) Acetaminophen (Tylenol 325mg Tab) 650 mg PO Q4 PRN PRN Reason: Fever >100.4 F Last Admin: 12/19/16 18:30 Dose: 650 mg Diphenhydramine HCl (Benadryl) 50 mg PO Q6 PRN PRN Reason: Itching / Pruritus Last Admin: 12/20/16 03:50 Dose: 50 mg Enoxaparin Sodium (Lovenox) 30 mg SC DAILY [facility] PRN Reason: Protocol Last Admin: 12/20/16 08:59 Dose: Not Given Home Med (Elvitegr/Cobicist/Emtric/Tenof [Stribild Tablet]) 1 tab PO DAILY [facility] Sodium Chloride (Sodium Chloride 0.9%) 1,000 mls @ 150 mls/hr IV .Q6H40M [facility] Last Admin: 12/19/16 14:17 Dose: 150 mls/hr Levofloxacin/Dextrose (Levaquin 500mg) 100 mls @ 100 mls/hr IVPB DAILY [facility] Last Admin: 12/20/16 08:54 Dose: 100 mls/hr Ceftriaxone Sodium 1 gm/ (Sodium Chloride) 100 mls @ 100 mls/hr IVPB DAILY [facility] Last Admin: 12/20/16 08:54 Dose: 100 mls/hr Physical Exam - Head Exam Head Exam: ATRAUMATIC - Eye Exam Eye Exam: Normal appearance - ENT Exam ENT Exam: Mucous Membranes Dry - Neck Exam Neck exam: Positive for: Normal Inspection - Respiratory Exam Respiratory Exam: NORMAL BREATHING PATTERN - Cardiovascular Exam Cardiovascular Exam: +S1, +S2 - GI/Abdominal Exam GI & Abdominal Exam: Normal Bowel Sounds - Back Exam Back exam: NORMAL INSPECTION - Neurological Exam Neurological exam: Oriented x3 - Psychiatric Exam Psychiatric exam: Normal Affect, Normal Mood - Skin Skin Exam: Warm Results - Vital Signs Recent Vital Signs: Last Vital Signs Temp 98.7 F 12/21/16 01:19 Pulse 89 12/20/16 21:01 Resp 18 12/20/16 21:01 BP 94/59 L 12/20/16 21:01 Pulse Ox 98 12/20/16 21:01 - Labs Result Diagrams: 12/20/16 06:30 12/20/16 06:30 Labs: Laboratory Results - last 24 hr 12/20/16 12/20/16 12:22 12:22 Retic Count 1.1 Ferritin 77.8 Vitamin B12 341 Folate 10.1 Assessment & Plan (1) Leukopenia Assessment and Plan: mild neutropenia may be related to HIV and exacerbated by infection discussed bone marrow evaluation if cytopenias do not approve to pt and her mother, they will think about it. Status: Acute (2) Anemia Assessment and Plan: will check ferritin, retic count, b12, folate, hgb electropheresis, and stool occult blood Thank you for this interesting consult. Status: Acute
[2016-12-21 07:26] LABS: BASO % 0.7 % (0.0-2.0); EOS # 0.1 K/uL (0.0-0.7); EOS % 4.4 % (0.0-4.0); HEMATOCRIT 28.7 % (34.0-47.0); LYMPH # 0.9 K/uL (1.0-4.3); LYMPH % 59.8 % (20.0-40.0); MEAN CELL VOLUME 76.4 fl (81.0-99.0); MEAN CORPUSCULAR HEMOGLOBIN 25.5 pg (27.0-31.0); MEAN CORPUSCULAR HGB CONC 33.4 g/dL (33.0-37.0); MEAN PLATELET VOLUME 8.2 fl (7.2-11.7); MONO # 0.2 K/uL (0.0-0.8); MONO % 12.3 % (0.0-10.0); NEUT # 0.4 K/uL (1.8-7.0); NEUT % 22.8 % (50.0-75.0); NRBC % 1.4 % (0.0-0.0); RED CELL DISTRIBUTION WIDTH 15.7 % (11.5-14.5)
[2016-12-21 07:34] LABS: WHITE BLOOD COUNT 1.5 K/uL (4.8-10.8)
--- NOTE | 2016-12-21 07:55 | PQF GENQUE ---
This form is a permanent part of the medical record 12/21/16 Dr. Martinez, Documentation Clarification: Please clarify which of the following diagnoses are past medical history or current admission under the physician response. Clarification of your documentation is requested to better reflect the severity of illness and intensity of treatment of your patient. PHYSICIAN'S RESPONSE Documentation Clarification: Please clarify which of the following diagnoses are past medical history or current admission. BRONCHITIS [ ] Current admission or [ ] Past medical history CELLULITIS [ ] Current admission or [ ] Past medical history CONCUSSION [ ] Current admission or [ ] Past medical history HEAD INJURY [ ] Current admission or [ ] Past medical history Based on your medical judgment of the clinical indicators outlined above please clarify the following: [] Practitioner response [] If unable to determine, please check the box, sign and date. Present On Admission (POA) Indicator: [] Present at the time of admission [] Not present at the time of admission [] Clinically Undetermined In responding to this query, please exercise your independent professional judgment. The fact that a question is asked does not imply that any particular answer is desired or expected. Thank you for your clarification on this documentation. If you have any questions please call:[phone] [facility] Department * Thank you, Geneva Juárez RN [facility]
--- NOTE | 2016-12-21 08:00 | PQF HIV ---
This form is a permanent part of the medical record 12/20/16 Dr. Martinez, AFTER WORKUP would you please clarify the status of the patient's HIV. Documentation of HIV since with a PMH of asthma and pneumonia. Lymphocyte subset panel pending. Clarification of your documentation is requested to better reflect the severity of illness and intensity of treatment of your patient. Indicators present [x] Documented diagnosis of HIV [] CD4 count: [] PENDING [] Other: [] Location in the medical record that reflects the above clinical findings: [] Other Treatment Provided: [] PHYSICIAN'S RESPONSE If possible, based on your medical judgment, please clarify the clinical classification for this patient. [] Asymptomatic HIV Status: without any history of (or current) AIDS Defining Illnesses of HIV-Related Illness [] AIDS: Meets the current CDC Definition of AIDS HIV-Infected persons who HAVE OR HAVE HAD less than 200 CD4+ T-lymphocytes/uL or CD4+ T-lymphocyte percentage of total lymphocytes of less than 14, AND/OR an AIDS-Defining or HIV-Related Disease. See reverse side for examples. Per CDC publication Vol 60 RR-17 : Relating to the classification HIV Infection , once a patient is diagnosed with AIDS the diagnosis still stands even if, after treatment, the CD4+ T cell count rises above 200 per uL of blood or other AIDS-defining illnesses are cured. [] If unable to determine, please check the box, sign and date. In responding to this query, please exercise your independent professional judgment. The fact that a question is asked does not imply that any particular answer is desired or expected. Thank you for your clarification on this documentation. If you have any questions please call: [address] [place] [address] Department * Thank you, Geneva Juárez RN [facility] The following are AIDS-Defining Illnesses or HIV-Related Diseases: Candidiasis of bronchi, trachea, or lungs Candidiasis, esophageal Cervical cancer, invasive * Coccidioidomycosis, disseminated or extrapulmonary Cryptococcosis, extrapulmonary Cryptosporidiosis, chronic intestinal (greater than 1 month's duration) Cytomegalovirus disease (other than liver, spleen, or nodes) Cytomegalovirus retinitis (with loss of vision) Encephalopathy, HIV-related Herpes simplex: chronic ulcer(s) (greater than 1 month's duration); or bronchitis, pneumonitis, or esophagitis Histoplasmosis, disseminated or extrapulmonary Isosporiasis, chronic intestinal (greater than 1 month's duration) Kaposi's sarcoma Lymphoma, Burkitt's (or equivalent term) Lymphoma, immunoblastic (or equivalent term) Lymphoma, primary, of brain Mycobacterium avium complex or M. 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
[2016-12-21] MEDS ORDERED: Sodium Chloride 3% for Inhalation 4 ML VIAL.NEB IH PRN (08:55)
--- NOTE | 2016-12-21 08:57 | CP.PCM.PN ---
Subjective - Date & Time of Evaluation Date of Evaluation: 12/21/16 Time of Evaluation: 08:57 - Subjective Subjective: FEELS BETTER AFEBRILE STILL COUGHING WITH THICK MUCOID SPUTUM Objective - Vital Signs/Intake and Output Vital Signs (last 24 hours): Temp Pulse Resp BP Pulse Ox 97.8 F 79 18 94/59 L 99 12/21/16 07:31 12/21/16 07:31 12/21/16 07:31 12/21/16 07:31 12/21/16 07:31 - Medications Medications: Current Medications Acetaminophen (Tylenol 325mg Tab) 650 mg PO Q4 PRN PRN Reason: Pain, moderate (4-7) Acetaminophen (Tylenol 325mg Tab) 650 mg PO Q4 PRN PRN Reason: Fever >100.4 F Last Admin: 12/19/16 18:30 Dose: 650 mg Diphenhydramine HCl (Benadryl) 50 mg PO Q6 PRN PRN Reason: Itching / Pruritus Last Admin: 12/20/16 03:50 Dose: 50 mg Enoxaparin Sodium (Lovenox) 30 mg SC DAILY [facility] PRN Reason: Protocol Last Admin: 12/20/16 08:59 Dose: Not Given Home Med (Elvitegr/Cobicist/Emtric/Tenof [Stribild Tablet]) 1 tab PO DAILY [facility] Sodium Chloride (Sodium Chloride 0.9%) 1,000 mls @ 150 mls/hr IV .Q6H40M [facility] Last Admin: 12/19/16 14:17 Dose: 150 mls/hr Levofloxacin/Dextrose (Levaquin 500mg) 100 mls @ 100 mls/hr IVPB DAILY [facility] Last Admin: 12/20/16 08:54 Dose: 100 mls/hr Ceftriaxone Sodium 1 gm/ (Sodium Chloride) 100 mls @ 100 mls/hr IVPB DAILY [facility] Last Admin: 12/20/16 08:54 Dose: 100 mls/hr - Labs Labs: 12/21/16 06:05 PT 10.0 SECONDS (9.6-11.2) 12/19/16 14:05 INR 0.96 (0.92-1.08) 12/19/16 14:05 APTT 30.2 SECONDS (23.3-32.5) 12/19/16 14:05 - Constitutional Appears: No Acute Distress - Head Exam Head Exam: ATRAUMATIC, NORMAL INSPECTION, NORMOCEPHALIC - Eye Exam Eye Exam: EOMI, Normal appearance, PERRL Pupil Exam: NORMAL ACCOMODATION, PERRL - ENT Exam ENT Exam: Mucous Membranes Moist, Normal Exam - Neck Exam Neck Exam: Full ROM, Normal Inspection. absent: Lymphadenopathy - Respiratory Exam Respiratory Exam: Rales, NORMAL BREATHING PATTERN - Cardiovascular Exam Cardiovascular Exam: REGULAR RHYTHM, +S1, +S2. absent: Murmur - GI/Abdominal Exam GI & Abdominal Exam: Soft, Normal Bowel Sounds. absent: Tenderness - Rectal Exam Rectal Exam: NORMAL INSPECTION - Extremities Exam Extremities Exam: Full ROM, Normal Capillary Refill, Normal Inspection. absent : Joint Swelling, Pedal Edema - Back Exam Back Exam: NORMAL INSPECTION - Neurological Exam Neurological Exam: Alert, Awake, CN II-XII Intact, Normal Gait, Oriented x3 - Psychiatric Exam Psychiatric exam: Normal Affect, Normal Mood - Skin Skin Exam: Dry, Intact, Normal Color, Warm - Additional Findings Additional findings: ALL CULTURES SO FAR NEGATIVE Assessment and Plan - Assessment and Plan (Free Text) Assessment: SEPSIS-?ETHIOLOGY HIV DZ LEUKOPENIA Plan: CONTINUE PRESENT RX SPUTUM CULTURE MAY NEED NEUPOGEN RX
[2016-12-21] MEDS: Enoxaparin 30 mg Syringe SC SCH ×2 (09:52→09:53)
--- NOTE | 2016-12-21 12:01 | CP.PCM.PN ---
Subjective - Date & Time of Evaluation Date of Evaluation: 12/21/16 Time of Evaluation: 12:00 - Subjective Subjective: No complaints. Objective - Vital Signs/Intake and Output Vital Signs (last 24 hours): Temp Pulse Resp BP Pulse Ox 97.8 F 79 18 94/59 L 99 12/21/16 07:31 12/21/16 07:31 12/21/16 07:31 12/21/16 07:31 12/21/16 07:31 - Medications Medications: Current Medications Acetaminophen (Tylenol 325mg Tab) 650 mg PO Q4 PRN PRN Reason: Pain, moderate (4-7) Acetaminophen (Tylenol 325mg Tab) 650 mg PO Q4 PRN PRN Reason: Fever >100.4 F Last Admin: 12/19/16 18:30 Dose: 650 mg Diphenhydramine HCl (Benadryl) 50 mg PO Q6 PRN PRN Reason: Itching / Pruritus Last Admin: 12/20/16 03:50 Dose: 50 mg Enoxaparin Sodium (Lovenox) 30 mg SC DAILY [facility] PRN Reason: Protocol Last Admin: 12/21/16 09:53 Dose: Not Given Home Med (Elvitegr/Cobicist/Emtric/Tenof [Stribild Tablet]) 1 tab PO DAILY [facility] Sodium Chloride (Sodium Chloride 0.9%) 1,000 mls @ 150 mls/hr IV .Q6H40M [facility] Last Admin: 12/19/16 14:17 Dose: 150 mls/hr Levofloxacin/Dextrose (Levaquin 500mg) 100 mls @ 100 mls/hr IVPB DAILY [facility] Last Admin: 12/21/16 09:51 Dose: 100 mls/hr Ceftriaxone Sodium 1 gm/ (Sodium Chloride) 100 mls @ 100 mls/hr IVPB DAILY [facility] Last Admin: 12/21/16 09:51 Dose: 100 mls/hr - Labs Labs: 12/21/16 06:05 PT 10.0 SECONDS (9.6-11.2) 12/19/16 14:05 INR 0.96 (0.92-1.08) 12/19/16 14:05 APTT 30.2 SECONDS (23.3-32.5) 12/19/16 14:05 - Head Exam Head Exam: ATRAUMATIC - Eye Exam Eye Exam: Normal appearance - ENT Exam ENT Exam: Mucous Membranes Dry - Respiratory Exam Respiratory Exam: NORMAL BREATHING PATTERN - Cardiovascular Exam Cardiovascular Exam: +S1, +S2 - GI/Abdominal Exam GI & Abdominal Exam: Normal Bowel Sounds - Extremities Exam Extremities Exam: Normal Inspection Assessment and Plan (1) Leukopenia Assessment & Plan: sever neutropenia; will place on isolation discussed bone marrow evaluation; pt wants to think about it and discuss further with her mom Status: Acute (2) Anemia Assessment & Plan: normal iron, b12, folate stores likely chronic disease, anemia of HIV Status: Acute
[2016-12-21] MEDS: Sodium Chloride 0.9% 1,000 ML IV SCH (17:17)
[2016-12-21] MEDS: [UNRECOGNIZED DRUG - OTHER] PO SCH (17:17)
--- NOTE | 2016-12-21 18:57 | CP.PCM.PN ---
Subjective - Date & Time of Evaluation Date of Evaluation: 12/21/16 Time of Evaluation: 07:00 - Subjective Subjective: fever/ neutropenia viral vs medication ? supportive rx possible BX bone marrow Objective - Vital Signs/Intake and Output Vital Signs (last 24 hours): Temp Pulse Resp BP Pulse Ox 98.3 F 73 18 90/61 L 98 12/21/16 16:44 12/21/16 16:44 12/21/16 16:44 12/21/16 16:44 12/21/16 16:44 - Medications Medications: Current Medications Acetaminophen (Tylenol 325mg Tab) 650 mg PO Q4 PRN PRN Reason: Pain, moderate (4-7) Acetaminophen (Tylenol 325mg Tab) 650 mg PO Q4 PRN PRN Reason: Fever >100.4 F Last Admin: 12/19/16 18:30 Dose: 650 mg Diphenhydramine HCl (Benadryl) 50 mg PO Q6 PRN PRN Reason: Itching / Pruritus Last Admin: 12/20/16 03:50 Dose: 50 mg Enoxaparin Sodium (Lovenox) 30 mg SC DAILY [facility] PRN Reason: Protocol Last Admin: 12/21/16 09:53 Dose: Not Given Home Med (Elvitegr/Cobicist/Emtric/Tenof [Stribild Tablet]) 1 tab PO DAILY [facility] Last Admin: 12/21/16 17:17 Dose: 1 tab Sodium Chloride (Sodium Chloride 0.9%) 1,000 mls @ 150 mls/hr IV .Q6H40M [facility] Last Admin: 12/21/16 17:17 Dose: 150 mls/hr Levofloxacin/Dextrose (Levaquin 500mg) 100 mls @ 100 mls/hr IVPB DAILY [facility] Last Admin: 12/21/16 09:51 Dose: 100 mls/hr Ceftriaxone Sodium 1 gm/ (Sodium Chloride) 100 mls @ 100 mls/hr IVPB DAILY [facility] Last Admin: 12/21/16 09:51 Dose: 100 mls/hr - Labs Labs: 12/21/16 06:05 PT 10.0 SECONDS (9.6-11.2) 12/19/16 14:05 INR 0.96 (0.92-1.08) 12/19/16 14:05 APTT 30.2 SECONDS (23.3-32.5) 12/19/16 14:05 Assessment and Plan (1) Fever Status: Acute (2) Leukopenia Status: Acute (3) HIV (human immunodeficiency virus infection) Status: Chronic (4) Bronchitis Status: Acute (5) Cellulitis Status: Acute (6) Concussion Status: Acute (7) DVT prophylaxis Status: Acute (8) Head injury Status: Acute
[2016-12-21 19:03] LABS: CYTOMEGALOVIRUS AB (IGM) <30.00 AU/mL
[2016-12-22 00:56] LABS: HEMOGLOBIN 9.6 g/dL (11.7-15.5); RDW 16.5 % (11.0-15.0)
[2016-12-22 07:48] LABS: BASO % 0.9 % (0.0-2.0); EOS # 0.1 K/uL (0.0-0.7); EOS % 4.4 % (0.0-4.0); HEMATOCRIT 29.7 % (34.0-47.0); LYMPH % 60.3 % (20.0-40.0); MEAN CELL VOLUME 75.1 fl (81.0-99.0); MEAN CORPUSCULAR HEMOGLOBIN 25.7 pg (27.0-31.0); MEAN CORPUSCULAR HGB CONC 34.2 g/dL (33.0-37.0); MEAN PLATELET VOLUME 7.9 fl (7.2-11.7); MONO # 0.2 K/uL (0.0-0.8); NEUT # 0.4 K/uL (1.8-7.0); NEUT % 24.4 % (50.0-75.0); NRBC % 0.7 % (0.0-0.0); RED CELL DISTRIBUTION WIDTH 15.6 % (11.5-14.5)
[2016-12-22 08:03] LABS: WHITE BLOOD COUNT 1.7 K/uL (4.8-10.8)
--- NOTE | 2016-12-22 09:31 | CP.PCM.PN ---
Subjective - Date & Time of Evaluation Date of Evaluation: 12/22/16 Time of Evaluation: 09:31 - Subjective Subjective: FEELS BETTER AFEBRILE ALL CULTURES NEGATIVE Objective - Vital Signs/Intake and Output Vital Signs (last 24 hours): Temp Pulse Resp BP Pulse Ox 98.6 F 69 18 95/64 L 99 12/22/16 07:22 12/22/16 07:22 12/22/16 07:22 12/22/16 07:22 12/22/16 07:22 - Medications Medications: Current Medications Acetaminophen (Tylenol 325mg Tab) 650 mg PO Q4 PRN PRN Reason: Pain, moderate (4-7) Acetaminophen (Tylenol 325mg Tab) 650 mg PO Q4 PRN PRN Reason: Fever >100.4 F Last Admin: 12/19/16 18:30 Dose: 650 mg Diphenhydramine HCl (Benadryl) 50 mg PO Q6 PRN PRN Reason: Itching / Pruritus Last Admin: 12/20/16 03:50 Dose: 50 mg Enoxaparin Sodium (Lovenox) 30 mg SC DAILY [facility] PRN Reason: Protocol Last Admin: 12/21/16 09:53 Dose: Not Given Home Med (Elvitegr/Cobicist/Emtric/Tenof [Stribild Tablet]) 1 tab PO DAILY [facility] Last Admin: 12/21/16 17:17 Dose: 1 tab Sodium Chloride (Sodium Chloride 0.9%) 1,000 mls @ 150 mls/hr IV .Q6H40M [facility] Last Admin: 12/21/16 17:17 Dose: 150 mls/hr Levofloxacin/Dextrose (Levaquin 500mg) 100 mls @ 100 mls/hr IVPB DAILY [facility] Last Admin: 12/21/16 09:51 Dose: 100 mls/hr Ceftriaxone Sodium 1 gm/ (Sodium Chloride) 100 mls @ 100 mls/hr IVPB DAILY [facility] Last Admin: 12/21/16 09:51 Dose: 100 mls/hr - Labs Labs: 12/22/16 06:15 PT 10.0 SECONDS (9.6-11.2) 12/19/16 14:05 INR 0.96 (0.92-1.08) 12/19/16 14:05 APTT 30.2 SECONDS (23.3-32.5) 12/19/16 14:05 - Constitutional Appears: No Acute Distress - Head Exam Head Exam: ATRAUMATIC, NORMAL INSPECTION, NORMOCEPHALIC - Eye Exam Eye Exam: EOMI, Normal appearance, PERRL Pupil Exam: NORMAL ACCOMODATION, PERRL - ENT Exam ENT Exam: Mucous Membranes Moist, Normal Exam - Neck Exam Neck Exam: Full ROM, Normal Inspection. absent: Lymphadenopathy - Respiratory Exam Respiratory Exam: Clear to Ausculation Bilateral, NORMAL BREATHING PATTERN - Cardiovascular Exam Cardiovascular Exam: REGULAR RHYTHM, +S1, +S2. absent: Murmur - GI/Abdominal Exam GI & Abdominal Exam: Soft, Normal Bowel Sounds. absent: Tenderness - Rectal Exam Rectal Exam: NORMAL INSPECTION - Extremities Exam Extremities Exam: Full ROM, Normal Capillary Refill, Normal Inspection. absent : Joint Swelling, Pedal Edema - Back Exam Back Exam: NORMAL INSPECTION - Neurological Exam Neurological Exam: Alert, Awake, CN II-XII Intact, Normal Gait, Oriented x3 - Psychiatric Exam Psychiatric exam: Normal Affect, Normal Mood - Skin Skin Exam: Dry, Intact, Normal Color, Warm Assessment and Plan - Assessment and Plan (Free Text) Assessment: SEPSIS IMPROVING LEUKOPENIA HIV DZ Plan: CONTINUE ANTIBIOTIC RX MONITOR WBC PT TO DECIDE ON BONE MARROW BX
[2016-12-22] MEDS: Enoxaparin 30 mg Syringe SC SCH (09:39)
[2016-12-22] MEDS: [UNRECOGNIZED DRUG - OTHER] PO SCH (09:40)
[2016-12-22 14:25] LABS: PARVOVIRUS B19 AB (IGG) 0.4 (<0.9); PARVOVIRUS B19 AB (IGM) 0.2 (<0.9)
[2016-12-22] MEDS ORDERED: Lidocaine 1% Inj (20ml) ONE (14:43)
[2016-12-22] MEDS ORDERED: Povidone Iodine Topical 10% Sol ONE (14:43)
--- NOTE | 2016-12-22 15:46 | CP.PCM.PN ---
Subjective - Date & Time of Evaluation Date of Evaluation: 12/22/16 Time of Evaluation: 13:00 - Subjective Subjective: Bone marrow aspiration and biopsy procedure Indication: Severe neutropenia, anemia - Time-out was called to confirm: patients name and date of , procedure, side and site of biopsy, safety procedures followed. - Performed by: self. - Informed consent: signed by patient. - Aspiration and biopsy site: [left][right] superior posterior iliac crest. - Patient position: [left lateral decubitus] - Preparation and technique: sterile preparation of site with [place], Chloraprep, draped to expose aspirate/biopsy area, local anesthesia with 2% lidocaine (approximately 10ml), frequent pressure application on incision to maintain hemostasis. - Tissue obtained: bone marrow aspirate and biopsy were successfully obtained in sterile manner. - Toleration of procedure and any complications: slight localized bleeding (<1ml ). Patient tolerated procedure well with minimal pain. Objective - Vital Signs/Intake and Output Vital Signs (last 24 hours): Temp Pulse Resp BP Pulse Ox 98.6 F 69 18 95/64 L 99 12/22/16 07:22 12/22/16 07:22 12/22/16 07:22 12/22/16 07:22 12/22/16 07:22 - Medications Medications: Current Medications Acetaminophen (Tylenol 325mg Tab) 650 mg PO Q4 PRN PRN Reason: Pain, moderate (4-7) Acetaminophen (Tylenol 325mg Tab) 650 mg PO Q4 PRN PRN Reason: Fever >100.4 F Last Admin: 12/19/16 18:30 Dose: 650 mg Diphenhydramine HCl (Benadryl) 50 mg PO Q6 PRN PRN Reason: Itching / Pruritus Last Admin: 12/20/16 03:50 Dose: 50 mg Enoxaparin Sodium (Lovenox) 30 mg SC DAILY [facility] PRN Reason: Protocol Last Admin: 12/22/16 09:39 Dose: Not Given Home Med (Elvitegr/Cobicist/Emtric/Tenof [Stribild Tablet]) 1 tab PO DAILY [facility] Last Admin: 12/22/16 09:40 Dose: 1 tab Sodium Chloride (Sodium Chloride 0.9%) 1,000 mls @ 150 mls/hr IV .Q6H40M [facility] Last Admin: 12/21/16 17:17 Dose: 150 mls/hr Levofloxacin/Dextrose (Levaquin 500mg) 100 mls @ 100 mls/hr IVPB DAILY [facility] Last Admin: 12/22/16 09:47 Dose: 100 mls/hr Ceftriaxone Sodium 1 gm/ (Sodium Chloride) 100 mls @ 100 mls/hr IVPB DAILY [facility] Last Admin: 12/22/16 09:38 Dose: 100 mls/hr - Labs Labs: 12/22/16 06:15 PT 10.0 SECONDS (9.6-11.2) 12/19/16 14:05 INR 0.96 (0.92-1.08) 12/19/16 14:05 APTT 30.2 SECONDS (23.3-32.5) 12/19/16 14:05 Assessment and Plan (1) Leukopenia Status: Acute (2) Anemia Status: Acute
[2016-12-22] MEDS ORDERED: Oxycodone/Acetaminophen 5/325 mg Tab PO PRN (23:34)
[2016-12-23] MEDS: [UNRECOGNIZED DRUG - OTHER] PO SCH (09:09)
[2016-12-23] MEDS: Enoxaparin 30 mg Syringe SC SCH (09:10)
[2016-12-23] MEDS: Sodium Chloride 0.9% 1,000 ML IV SCH ×4 (09:13→22:30)
--- NOTE | 2016-12-23 09:16 | PQF HIV ---
This form is a permanent part of the medical record 12/23/16 Dr. Guillory, Would you please further clarify the HIV status using the terminology under the physician response. Documentation of HIV since with a pmh of asthma and pneumonia. Lymphocyte subset panel results are back . Clarification of your documentation is requested to better reflect the severity of illness and intensity of treatment of your patient. Indicators present [x] Documented diagnosis of HIV [x] CD4 count: [] Results in EMR [] Other: [] Location in the medical record that reflects the above clinical findings: [] Other Treatment Provided: [x] PHYSICIAN'S RESPONSE If possible, based on your medical judgment, please clarify the clinical classification for this patient. [x] Asymptomatic HIV Status: without any history of (or current) AIDS Defining Illnesses of HIV-Related Illness [] AIDS: Meets the current CDC Definition of AIDS HIV-Infected persons who HAVE OR HAVE HAD less than 200 CD4+ T-lymphocytes/uL or CD4+ T-lymphocyte percentage of total lymphocytes of less than 14, AND/OR an AIDS-Defining or HIV-Related Disease. See reverse side for examples. Per CDC publication Vol 60 RR-17 : Relating to the classification HIV Infection , once a patient is diagnosed with AIDS the diagnosis still stands even if, after treatment, the CD4+ T cell count rises above 200 per uL of blood or other AIDS-defining illnesses are cured. [] If unable to determine, please check the box, sign and date. In responding to this query, please exercise your independent professional judgment. The fact that a question is asked does not imply that any particular answer is desired or expected. Thank you for your clarification on this documentation. If you have any questions please call: extension [phone] * Thank you, Geneva Juárez RN [facility] The following are AIDS-Defining Illnesses or HIV-Related Diseases: Candidiasis of bronchi, trachea, or lungs Candidiasis, esophageal Cervical cancer, invasive * Coccidioidomycosis, disseminated or extrapulmonary Cryptococcosis, extrapulmonary Cryptosporidiosis, chronic intestinal (greater than 1 month's duration) Cytomegalovirus disease (other than liver, spleen, or nodes) Cytomegalovirus retinitis (with loss of vision) Encephalopathy, HIV-related Herpes simplex: chronic ulcer(s) (greater than 1 month's duration); or bronchitis, pneumonitis, or esophagitis Histoplasmosis, disseminated or extrapulmonary Isosporiasis, chronic intestinal (greater than 1 month's duration) Kaposi's sarcoma Lymphoma, Burkitt's (or equivalent term) Lymphoma, immunoblastic (or equivalent term) Lymphoma, primary, of brain Mycobacterium avium complex or M. 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
[2016-12-23 11:30] LABS: BASO % 0.4 % (0.0-2.0); EOS % 0.4 % (0.0-4.0); HEMATOCRIT 29.3 % (34.0-47.0); LYMPH # 1.1 K/uL (1.0-4.3); LYMPH % 13.7 % (20.0-40.0); MEAN CELL VOLUME 75.3 fl (81.0-99.0); MEAN CORPUSCULAR HEMOGLOBIN 25.9 pg (27.0-31.0); MEAN CORPUSCULAR HGB CONC 34.5 g/dL (33.0-37.0); MEAN PLATELET VOLUME 7.6 fl (7.2-11.7); MONO # 0.3 K/uL (0.0-0.8); MONO % 4.2 % (0.0-10.0); NEUT # 6.8 K/uL (1.8-7.0); NEUT % 81.3 % (50.0-75.0); RED CELL DISTRIBUTION WIDTH 15.7 % (11.5-14.5); WHITE BLOOD COUNT 8.4 K/uL (4.8-10.8)
[2016-12-23 11:41] LABS: ALKALINE PHOSPHATASE 102 U/L (38-126); ALT/SGPT 69 U/L (9-52); AST/SGOT 112 U/L (14-36); BILIRUBIN,TOTAL 0.3 mg/dl (0.2-1.3); BLOOD UREA NITROGEN 10 mg/dl (7-17); CALCIUM 8.5 mg/dL (8.4-10.2); CARBON DIOXIDE 24 mmol/L (22-30); CHLORIDE 105 mmol/L (98-107); GFR AFRICAN-AMERICAN > 60; GLUCOSE,RANDOM 82 mg/dL (65-105); POTASSIUM 3.5 MMOL/L (3.6-5.0); SODIUM 138 mmol/l (132-148); TOTAL PROTEIN 6.7 G/DL (6.3-8.2)
[2016-12-23 12:17] LABS: HEMOGLOBIN F <1.0 Percent (<2.0)
[2016-12-23] MEDS ORDERED: Potassium Chloride 20 mEq ER Tab PO ONE (13:25)
--- NOTE | 2016-12-23 13:36 | CP.PCM.PN ---
Subjective - Date & Time of Evaluation Date of Evaluation: 12/23/16 Time of Evaluation: 09:00 - Subjective Subjective: pt with HIV/AIDS CD4 is < 100 and viral load is very high she follows with a dr in [place] check Bone marrow for MAC infection start Bactrim PO and zithromax PO poor prognosis Objective - Vital Signs/Intake and Output Vital Signs (last 24 hours): Temp Pulse Resp BP Pulse Ox 97.9 F 74 20 93/60 L 98 12/23/16 08:23 12/23/16 08:23 12/23/16 08:23 12/23/16 08:23 12/23/16 08:23 - Medications Medications: Current Medications Acetaminophen (Tylenol 325mg Tab) 650 mg PO Q4 PRN PRN Reason: Pain, moderate (4-7) Last Admin: 12/22/16 18:15 Dose: 650 mg Acetaminophen (Tylenol 325mg Tab) 650 mg PO Q4 PRN PRN Reason: Fever >100.4 F Last Admin: 12/19/16 18:30 Dose: 650 mg Diphenhydramine HCl (Benadryl) 50 mg PO Q6 PRN PRN Reason: Itching / Pruritus Last Admin: 12/23/16 09:19 Dose: 50 mg Enoxaparin Sodium (Lovenox) 30 mg SC DAILY [facility] PRN Reason: Protocol Last Admin: 12/23/16 09:10 Dose: Not Given Home Med (Elvitegr/Cobicist/Emtric/Tenof [Stribild Tablet]) 1 tab PO DAILY [facility] Last Admin: 12/23/16 09:09 Dose: 1 tab Sodium Chloride (Sodium Chloride 0.9%) 1,000 mls @ 150 mls/hr IV .Q6H40M [facility] Last Admin: 12/23/16 12:48 Dose: Not Given Levofloxacin/Dextrose (Levaquin 500mg) 100 mls @ 100 mls/hr IVPB DAILY [facility] Last Admin: 12/23/16 09:09 Dose: 100 mls/hr Ceftriaxone Sodium 1 gm/ (Sodium Chloride) 100 mls @ 100 mls/hr IVPB DAILY [facility] Last Admin: 12/23/16 09:10 Dose: 100 mls/hr Ondansetron HCl (Zofran Inj) 4 mg IVP Q4 PRN PRN Reason: Nausea/Vomiting Last Admin: 12/23/16 11:00 Dose: 4 mg Oxycodone/Acetaminophen (Percocet 5/325 Mg Tab) 1 tab PO Q6 PRN PRN Reason: Pain, severe (8-10) Stop: 12/25/16 23:35 Last Admin: 12/22/16 23:56 Dose: 1 tab - Labs Labs: 12/23/16 11:05 12/23/16 11:05 PT 10.0 SECONDS (9.6-11.2) 12/19/16 14:05 INR 0.96 (0.92-1.08) 12/19/16 14:05 APTT 30.2 SECONDS (23.3-32.5) 12/19/16 14:05 Assessment and Plan (1) Fever Status: Acute (2) Leukopenia Status: Acute (3) HIV (human immunodeficiency virus infection) Status: Chronic (4) Bronchitis Status: Acute (5) Cellulitis Status: Acute (6) Concussion Status: Acute (7) DVT prophylaxis Status: Acute (8) Head injury Status: Acute
--- NOTE | 2016-12-23 13:46 | CP.PCM.PN ---
Subjective - Date & Time of Evaluation Date of Evaluation: 12/23/16 Time of Evaluation: 13:46 - Subjective Subjective: FEELS BETTER C/O PAIN AT BONE MARROW SITE NO CHEST PAIN/SOB LEUKOPENIA HAS RESOLVED Objective - Vital Signs/Intake and Output Vital Signs (last 24 hours): Temp Pulse Resp BP Pulse Ox 97.9 F 74 20 93/60 L 98 12/23/16 08:23 12/23/16 08:23 12/23/16 08:23 12/23/16 08:23 12/23/16 08:23 - Medications Medications: Current Medications Acetaminophen (Tylenol 325mg Tab) 650 mg PO Q4 PRN PRN Reason: Pain, moderate (4-7) Last Admin: 12/22/16 18:15 Dose: 650 mg Acetaminophen (Tylenol 325mg Tab) 650 mg PO Q4 PRN PRN Reason: Fever >100.4 F Last Admin: 12/19/16 18:30 Dose: 650 mg Diphenhydramine HCl (Benadryl) 50 mg PO Q6 PRN PRN Reason: Itching / Pruritus Last Admin: 12/23/16 09:19 Dose: 50 mg Enoxaparin Sodium (Lovenox) 30 mg SC DAILY [facility] PRN Reason: Protocol Last Admin: 12/23/16 09:10 Dose: Not Given Home Med (Elvitegr/Cobicist/Emtric/Tenof [Stribild Tablet]) 1 tab PO DAILY [facility] Last Admin: 12/23/16 09:09 Dose: 1 tab Sodium Chloride (Sodium Chloride 0.9%) 1,000 mls @ 150 mls/hr IV .Q6H40M [facility] Last Admin: 12/23/16 12:48 Dose: Not Given Levofloxacin/Dextrose (Levaquin 500mg) 100 mls @ 100 mls/hr IVPB DAILY [facility] Last Admin: 12/23/16 09:09 Dose: 100 mls/hr Ceftriaxone Sodium 1 gm/ (Sodium Chloride) 100 mls @ 100 mls/hr IVPB DAILY [facility] Last Admin: 12/23/16 09:10 Dose: 100 mls/hr Ondansetron HCl (Zofran Inj) 4 mg IVP Q4 PRN PRN Reason: Nausea/Vomiting Last Admin: 12/23/16 11:00 Dose: 4 mg Oxycodone/Acetaminophen (Percocet 5/325 Mg Tab) 1 tab PO Q6 PRN PRN Reason: Pain, severe (8-10) Stop: 12/25/16 23:35 Last Admin: 12/22/16 23:56 Dose: 1 tab Trimethoprim/Sulfamethoxazole (Bactrim Ds Tab) 1 tab PO Q12 [facility] - Labs Labs: 12/23/16 11:05 12/23/16 11:05 PT 10.0 SECONDS (9.6-11.2) 12/19/16 14:05 INR 0.96 (0.92-1.08) 12/19/16 14:05 APTT 30.2 SECONDS (23.3-32.5) 12/19/16 14:05 - Constitutional Appears: No Acute Distress - Head Exam Head Exam: ATRAUMATIC, NORMAL INSPECTION, NORMOCEPHALIC - Eye Exam Eye Exam: EOMI, Normal appearance, PERRL Pupil Exam: NORMAL ACCOMODATION, PERRL - ENT Exam ENT Exam: Mucous Membranes Moist, Normal Exam - Neck Exam Neck Exam: Full ROM, Normal Inspection. absent: Lymphadenopathy - Respiratory Exam Respiratory Exam: Clear to Ausculation Bilateral, NORMAL BREATHING PATTERN - Cardiovascular Exam Cardiovascular Exam: REGULAR RHYTHM, +S1, +S2. absent: Murmur - GI/Abdominal Exam GI & Abdominal Exam: Soft, Normal Bowel Sounds. absent: Tenderness - Rectal Exam Rectal Exam: NORMAL INSPECTION - Extremities Exam Extremities Exam: Full ROM, Normal Capillary Refill, Normal Inspection. absent : Joint Swelling, Pedal Edema - Back Exam Back Exam: NORMAL INSPECTION - Neurological Exam Neurological Exam: Alert, Awake, CN II-XII Intact, Normal Gait, Oriented x3 - Psychiatric Exam Psychiatric exam: Normal Affect, Normal Mood - Skin Skin Exam: Dry, Intact, Normal Color, Warm Assessment and Plan - Assessment and Plan (Free Text) Assessment: SEPSIS IMPROVED ELEVATED LFTS-DUE TO SEPSIS HIV DZ LEUKOPENIA RESOLVED Plan: MONITOR LFTS D/C IN AM IF STABLE
[2016-12-23] MEDS: Tmp-Smz 800 mg-160 mg DS Tab PO SCH (22:29)
[2016-12-24] MEDS: Sodium Chloride 0.9% 1,000 ML IV SCH (00:25)
[2016-12-24 07:37] VITALS: BP 106/70; PULSE 72; RESP 18; TEMP 98.6; O2SAT 99
[2016-12-24 08:28] LABS: BILIRUBIN,TOTAL 0.2 mg/dl (0.2-1.3); TOTAL PROTEIN 6.3 G/DL (6.3-8.2)
[2016-12-24] MEDS: Tmp-Smz 800 mg-160 mg DS Tab PO SCH (09:33)
[2016-12-24] MEDS: [UNRECOGNIZED DRUG - OTHER] PO SCH (09:33)
[2016-12-24] MEDS: Enoxaparin 30 mg Syringe SC SCH (10:49)
--- NOTE | 2016-12-24 11:02 | CP.PCM.DIS ---
Provider - Provider Date of Admission: 12/20/16 08:35 Attending physician: Anuel Guillory MD Primary care physician: Reshma Wray Time Spent in preparation of Discharge (in minutes): 30 Diagnosis - Discharge Diagnosis (1) Anemia Status: Acute (2) Fever Status: Acute (3) Leukopenia Status: Acute (4) HIV (human immunodeficiency virus infection) Status: Chronic (5) Elevated liver enzymes Status: Acute Hospital Course - Lab Results Lab Results: Micro Results 12/21/16 19:41 Sputum Gram Stain - Final 12/21/16 19:41 Sputum Sputum Culture - Preliminary Yeast Species Most Recent Lab Values WBC 8.4 K/uL (4.8-10.8) D 12/23/16 11:05 RBC 3.89 Mil/uL (3.80-5.20) 12/23/16 11:05 Hgb 10.1 g/dL (12.0-16.0) L 12/23/16 11:05 Hct 29.3 % (34.0-47.0) L 12/23/16 11:05 MCV 75.3 fl (81.0-99.0) L 12/23/16 11:05 MCH 25.9 pg (27.0-31.0) L 12/23/16 11:05 MCHC 34.5 g/dL (33.0-37.0) 12/23/16 11:05 RDW 15.7 % (11.5-14.5) H 12/23/16 11:05 Plt Count 155 K/uL (130-400) 12/23/16 11:05 MPV 7.6 fl (7.2-11.7) 12/23/16 11:05 Neut % (Auto) 81.3 % (50.0-75.0) H 12/23/16 11:05 Lymph % (Auto) 13.7 % (20.0-40.0) L 12/23/16 11:05 Petroleum % (Auto) 4.2 % (0.0-10.0) 12/23/16 11:05 Eos % (Auto) 0.4 % (0.0-4.0) 12/23/16 11:05 Baso % (Auto) 0.4 % (0.0-2.0) 12/23/16 11:05 Neut # 6.8 K/uL (1.8-7.0) 12/23/16 11:05 Lymph # 1.1 K/uL (1.0-4.3) 12/23/16 11:05 Petroleum # 0.3 K/uL (0.0-0.8) 12/23/16 11:05 Eos # 0.0 K/uL (0.0-0.7) 12/23/16 11:05 Baso # 0.0 K/uL (0.0-0.2) 12/23/16 11:05 ESR 34 mm/hr (0-20) H 12/19/16 14:05 Retic Count 1.1 % (0.5-1.5) 12/20/16 12:22 Hemoglobin A 96.5 Percent (>96.0) 12/21/16 06:05 Hemoglobin A2 2.5 Percent (1.8-3.5) 12/21/16 06:05 Hemoglobin C 0.0 Percent (0.0-0.0) 12/21/16 06:05 Hemoglobin F () <1.0 Percent (<2.0) 12/21/16 06:05 Hemoglobin S 0.0 Percent (0.0-0.0) 12/21/16 06:05 Variant Hemoglobin 0.0 Percent (0.0-0.0) 12/21/16 06:05 Hemoglobinopathy Red Blood Count 3.68 Mill/mcL (3.80-5.10) L 12/21/16 06:05 Hemoglobinopathy Hct 28.0 % (35.0-45.0) L 12/21/16 06:05 Hemoglobinopathy Hgb 9.6 g/dL (11.7-15.5) L 12/21/16 06:05 Hemoglobinopathy MCV 76.0 fL (80.0-100.0) L 12/21/16 06:05 Hemoglobinopathy MCH 26.0 pg (27.0-33.0) L 12/21/16 06:05 Hemoglobinopathy RDW 16.5 % (11.0-15.0) H 12/21/16 06:05 Hemoglobinopathy Interp See note 12/21/16 06:05 PT 10.0 SECONDS (9.6-11.2) 12/19/16 14:05 INR 0.96 (0.92-1.08) 12/19/16 14:05 APTT 30.2 SECONDS (23.3-32.5) 12/19/16 14:05 pO2 22 mm/Hg (30-55) L 12/19/16 14:09 VBG pH 7.38 (7.32-7.43) 12/19/16 14:09 VBG pCO2 41 mmHg (40-60) 12/19/16 14:09 VBG HCO3 22.6 mmol/L 12/19/16 14:09 VBG Total CO2 25.6 mmol/L (22-28) 12/19/16 14:09 VBG O2 Sat (Calc) 46.1 % (40-65) 12/19/16 14:09 VBG Base Excess -0.8 mmol/L (0.0-2.0) L 12/19/16 14:09 VBG Potassium 3.5 mmol/L (3.6-5.2) L 12/19/16 14:09 Sodium 135.0 mmol/L (132-148) 12/19/16 14:09 Chloride 109.0 mmol/L (98-107) H 12/19/16 14:09 Glucose 76 mg/dL (65-105) 12/19/16 14:09 Lactate 1.1 mmol/L (0.7-2.1) 12/19/16 14:09 FiO2 21.0 % 12/19/16 14:09 Sodium 138 mmol/l (132-148) 12/23/16 11:05 Potassium 3.5 MMOL/L (3.6-5.0) L 12/23/16 11:05 Chloride 105 mmol/L (98-107) 12/23/16 11:05 Carbon Dioxide 24 mmol/L (22-30) 12/23/16 11:05 Anion Gap 13 (10-20) 12/23/16 11:05 BUN 10 mg/dl (7-17) 12/23/16 11:05 Creatinine 0.6 mg/dL (0.7-1.2) L 12/23/16 11:05 Est GFR ( Amer) > 60 12/23/16 11:05 Est GFR (Non-Af Amer) > 60 12/23/16 11:05 Random Glucose 82 mg/dL (65-105) 12/23/16 11:05 Calcium 8.5 mg/dL (8.4-10.2) 12/23/16 11:05 Phosphorus 3.3 mg/dl (2.5-4.5) 12/19/16 14:05 Magnesium 1.7 MG/DL (1.6-2.3) 12/19/16 14:05 Ferritin 77.8 ng/mL 12/20/16 12:22 Total Bilirubin 0.2 mg/dl (0.2-1.3) 12/24/16 05:30 Direct Bilirubin 0.2 mg/ml (0.0-0.4) 12/24/16 05:30 AST 98 U/L (14-36) H 12/24/16 05:30 ALT 65 U/L (9-52) H 12/24/16 05:30 Alkaline Phosphatase 101 U/L (38-126) 12/24/16 05:30 Total Protein 6.3 G/DL (6.3-8.2) 12/24/16 05:30 Albumin 3.1 g/dL (3.5-5.0) L 12/24/16 05:30 Globulin 3.2 gm/dL (2.2-3.9) 12/24/16 05:30 Albumin/Globulin Ratio 1.0 (1.0-2.1) 12/24/16 05:30 Vitamin B12 341 pg/mL (239-931) 12/20/16 12:22 Folate 10.1 ng/mL 12/20/16 12:22 Venous Blood Potassium 3.5 mmol/L (3.6-5.2) L 12/19/16 14:09 Urine Color Yellow (YELLOW) 12/19/16 14:05 Urine Clarity Slighty-cloudy (Clear) 12/19/16 14:05 Urine pH 6.0 (5.0-8.0) 12/19/16 14:05 Ur Specific [place] 1.025 (1.003-1.030) 12/19/16 14:05 Urine Protein 100 mg/dL (NEGATIVE) 12/19/16 14:05 Urine Glucose (UA) Neg mg/dL (Normal) 12/19/16 14:05 Urine Ketones Negative mg/dL (NEGATIVE) 12/19/16 14:05 Urine Blood Negative (NEGATIVE) 12/19/16 14:05 Urine Nitrate Negative (NEGATIVE) 12/19/16 14:05 Urine Bilirubin Negative (NEGATIVE) 12/19/16 14:05 Urine Urobilinogen 0.2-1.0 mg/dL (0.2-1.0) 12/19/16 14:05 Ur Leukocyte Esterase Small Trixie/uL (Negative) 12/19/16 14:05 Urine RBC (Auto) 3 /hpf (0-3) 12/19/16 14:05 Urine Microscopic WBC 6 /hpf (0-5) H 12/19/16 14:05 Ur Squamous Epith Cells 17 /hpf (0-5) H 12/19/16 14:05 Urine Bacteria Rare (<OCC) 12/19/16 14:05 Absolute Lymphs (Flow) 568 Cells/mcL (850-3900) L 12/20/16 12:19 % CD4 Cells 9 Percent (30-61) L 12/20/16 12:19 Absolute CD4 Count 53 Cells/mcL (490-1740) L 12/20/16 12:19 T-Help/Suppress Ratio 0.13 Ratio (0.86-5.00) L 12/20/16 12:19 % CD8 Cells 73 Percent (12-42) H 12/20/16 12:19 Absolute CD8 Count 417 Cells/mcL (180-1170) 12/20/16 12:19 T-Lymph Analys Comment See note 12/20/16 12:19 CMV IgG Ab 3.50 U/mL H 12/20/16 12:19 CMV IgM Ab <30.00 AU/mL 12/20/16 12:19 HIV-1 RNA copies/mL 488043 copies/mL (<20) H 12/20/16 12:19 HIV-1 RNA logcopies/mL 5.54 (<1.30) H 12/20/16 12:19 Influenza Typ A,B (EIA) Negative for flu a/b (NEGATIVE) 12/19/16 16:05 Parvovirus B19 IgG Ab 0.4 (<0.9) 12/20/16 12:19 Parvovirus B19 IgM Ab 0.2 (<0.9) 12/20/16 12:19 Parvovirus Interpret (()) 12/20/16 12:19 - Hospital Course Hospital Course: FEVER RESOLVED LEUKOPENIA RESOLVED Discharge Exam - Head Exam Head Exam: ATRAUMATIC, NORMAL INSPECTION, NORMOCEPHALIC - Eye Exam Eye Exam: EOMI, Normal appearance, PERRL Pupil Exam: NORMAL ACCOMODATION, PERRL - GI/Abdominal Exam GI & Abdominal Exam: Normal Bowel Sounds - Rectal Exam Rectal Exam: NORMAL INSPECTION - Neurological Exam Neurological exam: Alert, CN II-XII Intact, Normal Gait, Oriented x3, Reflexes Normal - Psychiatric Exam Psychiatric exam: Normal Affect, Normal Mood - Skin Skin Exam: Dry, Intact, Normal Color, Warm Discharge Plan - Follow Up Plan Condition: STABLE Disposition: HOME/ ROUTINE Patient education suggested?: Yes Additional Instructions: REPEAT LIVER FUNCTION STUDIES TO BE DONE BY PMD CONTINUE BACTRIM BID AND LEVAQUIN OD Referrals: Reshma Wray [Primary Care Provider] -
[2017-01-03 00:29] LABS: HIV-1 GENOTYPE DETECTED
== END 2016-12-24 13:03 | disposition home or self-care (01) | DRG 872 ==
LOC: H.ER 12:44 → H.ERHOLD 15:51 → H.MEDSURG1 17:34 → OBSVTOIN 12-20 08:35
PROVIDERS: ADMIT Internal Medicine Pulmonary Disease; ATTEND Internal Medicine Pulmonary Disease
PROC: 07DR3ZX Extraction of Iliac Bone Marrow, Percutaneous Approach, Diagnostic (ICD-10-PCS; principal; 2016-12-22)
DX: A41.9 Sepsis, unspecified organism (principal); D70.9 Neutropenia, unspecified; L03.90 Cellulitis, unspecified; Z21 Asymptomatic human immunodeficiency virus [HIV] infection status; J32.9 Chronic sinusitis, unspecified; J45.909 Unspecified asthma, uncomplicated; Z87.01 Personal history of pneumonia (recurrent); D64.9 Anemia, unspecified; D72.819 Decreased white blood cell count, unspecified

== ENCOUNTER 2017-08-22 16:05 | Emergency (ER) | payer MEDICARE, OTHER ==
[2017-08-22 16:05] VITALS: BMI 25.6
[2017-08-22 16:18] VITALS: BP 121/77; PULSE 82; RESP 18; TEMP 97.6; O2SAT 100
--- NOTE | 2017-08-22 16:51 | ED PDOC ---
HPI: CCC, URI, Sore Throat Time Seen by Provider: 08/22/17 16:15 Chief Complaint (Nursing): ENT Problem Chief Complaint (Provider): ENT Problem History Per: Patient History/Exam Limitations: no limitations Current Symptoms Are (Timing): Still Present Additional Complaint(s): 21 y/o female, PMH of congenital HIV, presents to the emergency department with left ear pain, 2 vomiting episodes, sore throat, cough, and green sputum for a couple of week but worsened this week. Denies fever or chills. Past Medical History Reviewed: Historical Data, Nursing Documentation, Vital Signs Vital Signs: Last Vital Signs Temp 97.6 F 08/22/17 16:16 Pulse 82 08/22/17 16:16 Resp 18 08/22/17 16:16 BP 121/77 08/22/17 16:16 Pulse Ox 100 08/22/17 17:57 - Medical History PMH: Asthma, HIV (congenital HIV), Pneumonia Denies: Chronic Kidney Disease - Family History Family History: States: Unknown Family Hx - Social History Current smoker - smoking cessation education provided: No Alcohol: None Drugs: Denies - Home Medications Home Medications: Ambulatory Orders Medication Instructions Recorded Elviteg/Galina/Emtric/Tenofo Dis 1 tab PO DAILY 11/10/16 [Stribild Tablet] Acetaminophen [Tylenol 325mg tab] 650 mg PO Q4 PRN tab 12/24/16 Elvitegr/Cobicist/Emtric/Tenof 1 tab PO DAILY 12/24/16 [Stribild Tablet] Sulfamethoxazole/Trimethoprim 1 tab PO Q12 tab 12/24/16 [Bactrim DS Tab] levoFLOXacin [Levaquin] 500 mg PO DAILY #7 tab 12/24/16 Azithromycin [Zithromax] 500 mg PO DAILY #5 ml 08/22/17 Methylprednisolone [Medrol Dose 4 mg PO DAILY #21 mg 08/22/17 Pack (21 tabs)] Promethazine HCl/Codeine 5 ml PO HS #80 ml 08/22/17 [Prometh-Codein 6.25-10 mg/5 ml] - Allergies Allergies/Adverse Reactions: Allergies Allergy/AdvReac Type Severity Reaction Status Date / Time No Known Allergies Allergy Verified 12/19/16 12:49 Review of Systems ROS Statement: Except As Marked, All Systems Reviewed And Found Negative (As per HPI, otherwise negative) Constitutional: Negative for: Fever, Chills ENT: Positive for: Ear Pain (Left), Throat Pain Respiratory: Positive for: Cough, Sputum (Green) Gastrointestinal: Positive for: Vomiting (2 episodes) Physical Exam - Reviewed Nursing Documentation Reviewed: Yes Vital Signs Reviewed: Yes - Physical Exam Appears: Positive for: Non-toxic, No Acute Distress Head Exam: Positive for: ATRAUMATIC, NORMAL INSPECTION, NORMOCEPHALIC Skin: Positive for: Normal Color, Warm, Dry ENT: Positive for: TM Is/Are (WNL). Negative for: Pharyngeal Erythema, Tonsillar Exudate, Tonsillar Swelling Neck: Positive for: Normal, Supple Cardiovascular/Chest: Positive for: Regular Rate, Rhythm. Negative for: Murmur Respiratory: Positive for: Normal Breath Sounds. Negative for: Accessory Muscle Use, Respiratory Distress Gastrointestinal/Abdominal: Positive for: Normal Exam, Soft. Negative for: Tenderness Extremity: Positive for: Normal ROM. Negative for: Pedal Edema Neurologic/Psych: Positive for: Alert, Oriented (x3) - Laboratory Results Result Diagrams: 08/22/17 16:59 08/22/17 16:59 - ECG O2 Sat by Pulse Oximetry: 100 (RA) Pulse Ox Interpretation: Normal Medical Decision Making Medical Decision Making: Time: 1627 Initial impression: Flu-like symptoms Initial plan: --CMP --CBC w/ diff --Chest x-ray --Reevaluation Time: 1658 --WBC: 2.0 (Low) --Hgb: 9.5 (Low) Pt educated on all results and demonstrated full understanding. Reports her WBCs are usually at 2. Time: 1716 --Chest x-ray LUNGS: No active pulmonary disease. PLEURA: No significant pleural effusion identified. No pneumothorax apparent. CARDIOVASCULAR: Normal. OSSEOUS STRUCTURES: No significant abnormalities. VISUALIZED UPPER ABDOMEN: Normal. OTHER FINDINGS: None. IMPRESSION: No active disease. Time: 175 Upon provider reevaluation patient is feeling better, is medically stable, and requires no further treatment in the ED at this time. Patient will be discharged home with Rx for Zithromax 500 mg, Medrol Dose Pack 4 mg, and Prometh -Codein 6.25-10mg/5 ml. Counseling was provided and all questions were answered regarding diagnosis and need for follow up with primary care doctor. There is agreement to discharge plan. Return if symptoms persist or worsen. Clinical Impression: Viral Syndrome Importance of christi corea stressed and Pt notes she is going to see her specialist the last week in [place] Scribe Attestation: Documented by Helga Bergeron, acting as a scribe for Scarlett Mckeon PA-C Provider Scribe Attestation: All medical record entries made by the Scribe were at my direction and personally dictated by me. I have reviewed the chart and agree that the record accurately reflects my personal performance of the history, physical exam, medical decision making, and the department course for this patient. I have also personally directed, reviewed, and agree with the discharge instructions and disposition. Disposition - Clinical Impression Clinical Impression: Viral syndrome - Patient ED Disposition Is Patient to be Admitted: No Counseled Patient/Family Regarding: Studies Performed, Diagnosis, Need For Followup, Rx Given - Disposition Disposition: Routine/Home Disposition Time: 17:50 Condition: STABLE Prescriptions: Azithromycin [Zithromax] 500 mg PO DAILY #5 ml Methylprednisolone [Medrol Dose Pack (21 tabs)] 4 mg PO DAILY #21 mg Promethazine HCl/Codeine [Prometh-Codein 6.25-10 mg/5 ml] 5 ml PO HS #80 ml Instructions: Viral Syndrome (ED) Forms: [employer] (Serbian)
[2017-08-22 17:08] LABS: BASO % 1.1 % (0.0-2.0); EOS % 2.3 % (0.0-4.0); HEMOGLOBIN 9.5 g/dL (12.0-16.0); LYMPH # 0.9 K/uL (1.0-4.3); LYMPH % 45.6 % (20.0-40.0); MEAN CELL VOLUME 75.8 fl (81.0-99.0); MEAN CORPUSCULAR HEMOGLOBIN 24.7 pg (27.0-31.0); MEAN CORPUSCULAR HGB CONC 32.6 g/dL (33.0-37.0); MONO # 0.2 K/uL (0.0-0.8); MONO % 10.3 % (0.0-10.0); NEUT # 0.8 K/uL (1.8-7.0); NEUT % 40.7 % (50.0-75.0); NRBC % 0.2 % (0.0-0.0); RBC 3.86 Mil/uL (3.80-5.20); RED CELL DISTRIBUTION WIDTH 15.7 % (11.5-14.5)
--- NOTE | 2017-08-22 17:18 | RAD ---
HISTORY: cough x 2 weeks COMPARISON: Chest radiograph dated 12/19/2016. TECHNIQUE: Chest PA and lateral FINDINGS: LUNGS: No active pulmonary disease. PLEURA: No significant pleural effusion identified. No pneumothorax apparent. CARDIOVASCULAR: Normal. OSSEOUS STRUCTURES: No significant abnormalities. VISUALIZED UPPER ABDOMEN: Normal. OTHER FINDINGS: None. IMPRESSION: No active disease.
[2017-08-22 17:22] LABS: ALB/GLOB RATIO 1.2 (1.0-2.1); ALBUMIN 4.2 g/dL (3.5-5.0); ALT/SGPT 46 U/L (9-52); AST/SGOT 50 U/L (14-36); BLOOD UREA NITROGEN 7 mg/dl (7-17); CALCIUM 8.6 mg/dL (8.4-10.2); GFR AFRICAN-AMERICAN > 60; GFR NON-AFRICAN AMERICAN > 60
== END 2017-08-22 17:54 | disposition home or self-care (01) ==
LOC: H.ER 16:05
DX: B34.9 Viral infection, unspecified (principal); J45.909 Unspecified asthma, uncomplicated; B20 Human immunodeficiency virus [HIV] disease

== ENCOUNTER 2017-11-03 19:43 | Emergency (ER) | payer MEDICARE, OTHER ==
[2017-11-03 19:43] VITALS: BMI 25.6
[2017-11-03 19:58] VITALS: BP 113/76; PULSE 78; RESP 16; TEMP 98.2; O2SAT 100
[2017-11-03] MEDS ORDERED: Alum-Mag Hydrox-Simethicone Susp (30 mL) PO STA (20:16)
--- NOTE | 2017-11-03 20:22 | ED PDOC ---
HPI: Chest Pain <Margaret Vega - Last Filed: 11/03/17 21:08> <Jose David Dias - Last Filed: 11/03/17 21:12> Time Seen by Provider: 11/03/17 20:07 Chief Complaint (Nursing): Chest Pain Additional Complaint(s): 22yo F with PMHx congenital HIV c/o mid sternal chest pain. duration x2 week, worse x1 day, a/w vomiting x2 days, burning in quality, a/w food intake, worse with laying down after eating, no radiation, not reproducible. Last saw PCP and rx fluconazole for thrush and protonix for GERD which pt has not started yet, recieving rx tomorrow in the mail. Denies PMH/FHx cardiac disease. Denies smoking, drug use. Not taking any meds for this complaint. PCP: Dr Clinton MichaelsPranay, seen in [facility] clinic) (Margaret Vega) Supervising Attending Note <Margaret Vega - Last Filed: 11/03/17 21:08> - Attestation: I have personally seen and examined this patient.: Yes I have fully participated in the care of the patient.: Yes I have reviewed all pertinent clinical information: Yes <Jose David Dias - Last Filed: 11/03/17 21:12> - Notes: Notes:: Hx of HIV p/w burning chest pain, worse with eating and laying flat, has not started PPIs because medications arrive tomorrow. After giving GI cocktail, patient reports resolution of symptoms. Advised to f/u w/ PMD. (Jose David Dias) Past Medical History Reviewed: Historical Data, Nursing Documentation, Vital Signs - Medical History PMH: Asthma, HIV (congenital HIV), Pneumonia Denies: Chronic Kidney Disease - Family History Family History: States: Unknown Family Hx - Social History Current smoker - smoking cessation education provided: No Alcohol: None Drugs: Denies <Margaret Vega - Last Filed: 11/03/17 21:08> <Jose David Dias - Last Filed: 11/03/17 21:12> Vital Signs: Last Vital Signs Temp 98.2 F 11/03/17 19:53 Pulse 78 11/03/17 19:53 Resp 16 11/03/17 19:53 BP 113/76 11/03/17 19:53 Pulse Ox 100 11/03/17 21:09 - Home Medications Home Medications: Ambulatory Orders Medication Instructions Recorded Elviteg/Galina/Emtric/Tenofo Dis 1 tab PO DAILY 11/10/16 [Stribild Tablet] Acetaminophen [Tylenol 325mg tab] 650 mg PO Q4 PRN tab 12/24/16 Elvitegr/Cobicist/Emtric/Tenof 1 tab PO DAILY 12/24/16 [Stribild Tablet] Sulfamethoxazole/Trimethoprim 1 tab PO Q12 tab 12/24/16 [Bactrim DS Tab] levoFLOXacin [Levaquin] 500 mg PO DAILY #7 tab 12/24/16 Azithromycin [Zithromax] 500 mg PO DAILY #5 ml 08/22/17 Methylprednisolone [Medrol Dose 4 mg PO DAILY #21 mg 08/22/17 Pack (21 tabs)] Promethazine HCl/Codeine 5 ml PO HS #80 ml 08/22/17 [Prometh-Codein 6.25-10 mg/5 ml] Famotidine [Pepcid] 20 mg PO BID #20 tab 11/03/17 - Allergies Allergies/Adverse Reactions: Allergies Allergy/AdvReac Type Severity Reaction Status Date / Time No Known Allergies Allergy Verified 12/19/16 12:49 Review of Systems ROS Statement: Except As Marked, All Systems Reviewed And Found Negative Cardiovascular: Positive for: Chest Pain <,Ting - Last Filed: 11/03/17 21:08> Physical Exam - Reviewed Nursing Documentation Reviewed: Yes Vital Signs Reviewed: Yes - Physical Exam Appears: Positive for: Well, Non-toxic Head Exam: Positive for: ATRAUMATIC, NORMAL INSPECTION Skin: Positive for: Warm, Dry Eye Exam: Positive for: Normal appearance ENT: Positive for: Other (upper palate thrush). Negative for: Pharyngeal Erythema Neck: Positive for: Normal, Painless ROM, Supple Cardiovascular/Chest: Positive for: Regular Rate, Rhythm, Chest Non Tender Respiratory: Positive for: Normal Breath Sounds. Negative for: Decreased Breath Sounds Gastrointestinal/Abdominal: Positive for: Soft Back: Positive for: Normal Inspection Extremity: Positive for: Normal ROM. Negative for: Tenderness Lymphatic: Negative for: Adenopathy Neurologic/Psych: Positive for: Alert, Oriented <Tu,Ting - Last Filed: 11/03/17 21:08> - ECG O2 Sat by Pulse Oximetry: 100 <Margaret Vega - Last Filed: 11/03/17 21:08> Medical Decision Making <Margaret Vega - Last Filed: 11/03/17 21:08> <Jose David Dias - Last Filed: 11/03/17 21:12> Medical Decision Makin DDx GERD, thrush, FL EKG NSR PO pepcid, lidocaine, mag-ox 0117 pain resolved d/c home with pepcid, start fluconazole and PPI FU PCP (Margaret Vega) Disposition - Disposition Disposition: Routine/Home Disposition Time: 21:09 <Margaret Vega - Last Filed: 11/03/17 21:08> <Jose David Dias - Last Filed: 11/03/17 21:12> - Clinical Impression Clinical Impression: GERD (gastroesophageal reflux disease), Thrush, oral - Disposition Referrals: [facility] [Outside] Condition: STABLE Prescriptions: Famotidine [Pepcid] 20 mg PO BID #20 tab Instructions: Acid Reflux (Gastroesophageal Reflux Disease), Adult (DC), Thrush (DC) Forms: [employer] (Chinese)
[2017-11-03] MEDS ORDERED: Alum-Mag Hydrox-Simethicone Susp (30 mL) ONE (20:48)
--- NOTE | 2017-11-06 09:04 | CARD ---
APPROVED REPORT EKG Measurement Heart [id number] <Conclusion> Normal sinus rhythm with sinus arrhythmia Normal ECG
== END 2017-11-03 21:26 | disposition home or self-care (01) ==
LOC: H.ER 19:43
DX: K21.9 Gastro-esophageal reflux disease without esophagitis (principal); B37.0 Candidal stomatitis; J45.909 Unspecified asthma, uncomplicated; B20 Human immunodeficiency virus [HIV] disease

== ENCOUNTER 2018-05-26 11:33 | Emergency (ER) | payer MEDICARE, OTHER ==
[2018-05-26 11:34] VITALS: BMI 25.6
[2018-05-26 11:38] VITALS: BP 118/72; PULSE 80; RESP 16; TEMP 97.9; O2SAT 100
[2018-05-26] MEDS ORDERED: Tobramycin 0.3% OPHT SOLN OS ONE (12:30)
[2018-05-26] MEDS ORDERED: guaiFENesin 200 mg/10 ml Syrup UD PO STA (12:32)
--- NOTE | 2018-05-26 12:36 | ED PDOC ---
HPI: Eye Injury/Pain Chief Complaint (Provider): Eye Problem History Per: Patient History/Exam Limitations: no limitations Onset/Duration Of Symptoms: Days (x7) Current Symptoms Are (Timing): Still Present Associated Symptoms: Pain, Swelling. denies: Decreased Vision, FB Sensation, Discharge From Eye Additional Complaint(s): An Moore is a 22 year old female with a past medical history of HIV since , who is presenting to the ED for evaluation of eye pain and stye to left eye onset one week ago. Patient states that she has not used any medications and reports applying hot compresses twice since onset. She reports localized swelling and adds that she has had a dry cough for one week. Patient states that she wears glasses, not contacts and denies any recent travel, fever/chills, chest pain, abdominal pain, ear/throat pain, nausea, or vomiting. Patient is compliant with HIV meds and last viral load was undetectable. LMP: May 15. PMD: Dr. Cummings <Roseanne Chong - Last Filed: 05/26/18 18:37> <Roseanne Perry - Last Filed: 05/27/18 18:58> Time Seen by Provider: 05/26/18 12:19 Chief Complaint (Nursing): Eye Problem Supervising Attending Note - Supervising Attending Note The Documented history was done by the: Physician Heavy Lift Rigger The documented physical exam was done by the: Physician Heavy Lift Rigger The documented procedures were done by the: Physician Heavy Lift Rigger - Attestation: I have personally seen and examined this patient.: No I have fully participated in the care of the patient.: No I have reviewed all pertinent clinical information, including history, physical exam and plan: Yes <Roseanne Perry - Last Filed: 05/27/18 18:58> Past Medical History Reviewed: Historical Data, Nursing Documentation, Vital Signs Vital Signs: Last Vital Signs Temp 97.9 F 05/26/18 11:38 Pulse 80 05/26/18 11:38 Resp 16 05/26/18 11:38 BP 118/72 05/26/18 11:38 Pulse Ox 100 05/26/18 11:38 - Medical History PMH: Asthma, HIV (congenital HIV) - Surgical History Surgical History: Cholecystectomy - Family History Family History: States: Unknown Family Hx - Social History Current smoker - smoking cessation education provided: No Alcohol: None Drugs: Denies - Immunization History Hx Tetanus Toxoid Vaccination: Yes <Roseanne Chong - Last Filed: 05/26/18 18:37> Vital Signs: Last Vital Signs Temp 97.9 F 05/26/18 11:38 Pulse 80 05/26/18 11:38 Resp 16 05/26/18 11:38 BP 118/72 05/26/18 11:38 Pulse Ox 100 05/26/18 18:37 <Roseanne Perry - Last Filed: 05/27/18 18:58> - Home Medications Home Medications: Ambulatory Orders Medication Instructions Recorded RX: Elviteg/Galina/Emtric/Tenofo Dis 1 tab PO DAILY 11/10/16 [Stribild Tablet] Elvitegr/Cobicist/Emtric/Tenof 1 tab PO DAILY 12/24/16 [Stribild Tablet] RX: Acetaminophen [Tylenol 325mg 650 mg PO Q4 PRN tab 12/24/16 tab] RX: Sulfamethoxazole/Trimethoprim 1 tab PO Q12 tab 12/24/16 [Bactrim DS Tab] levoFLOXacin [Levaquin] 500 mg PO DAILY #7 tab 12/24/16 Azithromycin [Zithromax] 500 mg PO DAILY #5 ml 08/22/17 Methylprednisolone [Medrol Dose 4 mg PO DAILY #21 mg 08/22/17 Pack (21 tabs)] Promethazine HCl/Codeine 5 ml PO HS #80 ml 08/22/17 [Prometh-Codein 6.25-10 mg/5 ml] Famotidine [Pepcid] 20 mg PO BID #20 tab 11/03/17 Cephalexin [Keflex] 500 mg PO TID #21 capsule 05/26/18 RX: Promethazine DM [Phenergan DM 5 ml PO Q6 PRN #150 ml 05/26/18 Syrup] RX: Tobramycin 0.3% [Tobrex 0.3% 1 drop OS Q6 #1 bottle 05/26/18 Ophth Soln] - Allergies Allergies/Adverse Reactions: Allergies Allergy/AdvReac Type Severity Reaction Status Date / Time No Known Allergies Allergy Verified 12/19/16 12:49 Review of Systems ROS Statement: Except As Marked, All Systems Reviewed And Found Negative Eyes: Positive for: Pain, Eyelid Inflammation, Redness Respiratory: Positive for: Cough Gastrointestinal: Negative for: Nausea, Vomiting <Roseanne Chong - Last Filed: 05/26/18 18:37> Physical Exam - Reviewed Nursing Documentation Reviewed: Yes Vital Signs Reviewed: Yes - Physical Exam Comments: GENERAL APPEARANCE: Patient is awake, alert, oriented x 3, in no acute distress. Resting comfortably. HEENT: (-) facial swelling and erythema, (-) facial blisters(-) periorbital tenderness or swelling NECK: Supple, FROM ENT: Mucus membranes moist. Airway patent, (-) stridor. VISUAL ACUITIES: Left eye: 25/20 ; Right eye: 25/20. (with glasses) LIDS & LASHES: (+) 3 mm x 3 mm stye to mid upper left eyelid with surrounding erythema and edema. (-) mucous discharge. (-) crusting PUPILS: Pupils are equal and reactive. EOM's: Intact and painless. LID EVERSION: (-) foreign body. CONJUNCTIVAE: (-) injection. ANTERIOR CHAMBER: (-) hyphema. CHEST AND RESPIRATORY: (-) rales, (-) rhonchi, (-) wheezes; breath sounds equal bilaterally. Respirations even and nonlabored, speaking in full sentences. HEART AND CARDIOVASCULAR: (-) irregularity ABDOMEN AND GI: Soft; (-) tenderness; (-) distention. NEURO: Mental status as above. Gait: steady. Speech: clear. (-) facial asymmetry (-) aphasia. <Roseanne Chong - Last Filed: 05/26/18 18:37> - Laboratory Results Urine POC: Negative - ECG O2 Sat by Pulse Oximetry: 100 (RA) Pulse Ox Interpretation: Normal <Roseanne Chong - Last Filed: 05/26/18 18:37> Medical Decision Making Medical Decision Making: Time: 12:30 Impression: infected stye, cough Plan: --ED Urine --Chest X-ray --Keflex 500 mg PO --Robitussin 200 mg PO --Tobrex Upreg: Negative 1335 Chest X-ray: FINDINGS: LUNGS: No active pulmonary disease. PLEURA: No significant pleural effusion identified. No pneumothorax apparent. CARDIOVASCULAR: Normal. OSSEOUS STRUCTURES: No significant abnormalities. VISUALIZED UPPER ABDOMEN: Normal. OTHER FINDINGS: None. IMPRESSION: No active disease. On re-evaluation, patient reports improvement of symptoms. On exam, patient remains AAOx3, in no acute distress. Lungs clear to auscultation, cardiac RRR, repeat neuro exam shows no focal findings. Vitals stable. Warm compresses encouraged. Lab/Diagnostic results d/w the patient in great detail. Diagnosis of cough, infected stye d/w the patient. Based on history, exam and diagnostic results, plan will be for outpatient follow up with PMD/ophtho. Patient instructed to follow-up with pmd / referral provided / the clinic in 1- 2 days without fail. Advised to take medication as prescribed. Return to the emergency room at any time for any new or worsening symptoms. Patient states she fully agrees with and understands discharge instructions. States that she agrees with the plan and disposition. Verbalized and repeated discharge instructions and plan. I have given the patient opportunity to ask any additional questions. Scribe Attestation: Documented by Joelle Castrejon, acting as a scribe for Roseanne Chong PA-C. Provider Scribe Attestation: All medical record entries made by the Scribe were at my direction and personally dictated by me. I have reviewed the chart and agree that the record accurately reflects my personal performance of the history, physical exam, medical decision making, and the department course for this patient. I have also personally directed, reviewed, and agree with the discharge instructions and disposition. <Roseanne Chong - Last Filed: 05/26/18 18:37> Disposition - Patient ED Disposition Is Patient to be Admitted: No Counseled Patient/Family Regarding: Studies Performed, Diagnosis, Need For Followup, Rx Given - Disposition Disposition: Routine/Home Disposition Time: 13:39 - POA Present On Arrival: None <Roseanne Chong Last Filed: 05/26/18 18:37> <Roseanne Perry - Last Filed: 05/27/18 18:58> - Clinical Impression Clinical Impression: Cough in adult, Stye, Eyelid inflammation - Disposition Referrals: Lester Ellison MD [Staff Provider] - Condition: STABLE Additional Instructions: The emergency medical care you received today was directed at your acute symptoms. If you were prescribed any medication, please fill it and take as directed. It may take several days for your symptoms to resolve. Return to the Emergency Department if your symptoms worsen, do not improve, or if you have any other problems. Please contact your doctor in 2 days for re-evaluation and follow up / or call one of the physicians/clinics you have been referred to that are listed on the Patient Visit Information form that is included in your discharge packet. Bring any paperwork you were given at discharge with you along with any medications you are taking to your follow up visit. Our treatment cannot replace ongoing medical care by a primary care provider (PCP) outside of the emergency department. Prescriptions: Cephalexin [Keflex] 500 mg PO TID #21 capsule RX: Promethazine DM [Phenergan DM Syrup] 5 ml PO Q6 PRN #150 ml PRN Reason: Cough RX: Tobramycin 0.3% [Tobrex 0.3% Ophth Soln] 1 drop OS Q6 #1 bottle Instructions: Cough in Adults, Stye (Hordeolum) Forms: [employer] (S[place]i) Print Language: [place] ISLAND[place]
[2018-05-26] MEDS ORDERED: guaiFENesin 100 mg/5 ml Syrup UD ONE (12:42)
--- NOTE | 2018-05-26 13:25 | RAD ---
Date of service: 05/26/2018 HISTORY: cough x 1 week COMPARISON: Chest radiograph dated 08/22/2017 TECHNIQUE: Chest PA and lateral FINDINGS: LUNGS: No active pulmonary disease. PLEURA: No significant pleural effusion identified. No pneumothorax apparent. CARDIOVASCULAR: Normal. OSSEOUS STRUCTURES: No significant abnormalities. VISUALIZED UPPER ABDOMEN: Normal. OTHER FINDINGS: None. IMPRESSION: No active disease.
== END 2018-05-26 13:49 | disposition home or self-care (01) ==
LOC: H.ER 11:33
DX: R05 Cough (principal); H00.014 Hordeolum externum left upper eyelid; H01.9 Unspecified inflammation of eyelid; J45.909 Unspecified asthma, uncomplicated

== ENCOUNTER 2019-01-17 10:14 | Inpatient (IN) | payer MEDICARE, OTHER ==
[2019-01-17 10:15] VITALS: BMI 25.6
[2019-01-17] MEDS ORDERED: Sodium Chloride 0.9% 1,000 ML IV STA ×2 (10:49→15:51)
[2019-01-17 11:11] LABS: VENOUS BLOOD GAS BASE EXCESS -3.3 mmol/L (0.0-2.0); VENOUS BLOOD GAS PCO2 36 mmHg (40-60); VENOUS BLOOD GAS PO2 24 mm/Hg (30-55); VENOUS BLOOD PH 7.38 (7.32-7.43)
[2019-01-17 11:29] LABS: BASO % 0.4 % (0.0-2.0); HEMOGLOBIN 11.8 g/dL (12.0-16.0); LYMPH # 1.5 K/uL (1.0-4.3); LYMPH % 25.7 % (20.0-40.0); MEAN CELL VOLUME 77.4 fl (81.0-99.0); MEAN CORPUSCULAR HEMOGLOBIN 25.2 pg (27.0-31.0); MEAN CORPUSCULAR HGB CONC 32.5 g/dL (33.0-37.0); MEAN PLATELET VOLUME 8.4 fl (7.2-11.7); MONO # 0.4 K/uL (0.0-0.8); MONO % 5.9 % (0.0-10.0); NRBC % 0.2 % (0.0-0.0); RBC 4.69 Mil/uL (3.80-5.20); RED CELL DISTRIBUTION WIDTH 15.2 % (11.5-14.5); WHITE BLOOD COUNT 5.9 K/uL (4.8-10.8)
--- NOTE | 2019-01-17 11:35 | ED PDOC ---
History of Present Illness History of Present Illness: 23 y/o female with a PMHx of HIV since (on HAART medicine) presents to the ED for evaluation of a fever and abdominal pain. Patient reports of having developed a fever and sore throat at home. Patient notes fever was mildly relieved by Motrin. Patient states she has been profusely vomiting, been progressively getting weak and had vomiting for the past three days. Of note, patient reports of returning from [place] 1.5 weeks ago. PMD: at [facility] HPI: Influenza Time Seen by Provider: 01/17/19 10:32 Chief Complaint: Fever Chief Complaint (Provider): Fever History Per: Patient, Family Exam Limitations: no limitations Onset/Duration Of Symptoms: Days Past Medical History Reviewed: Historical Data, Nursing Documentation, Vital Signs Vital Signs: Last Vital Signs Temp 101.4 F H 01/17/19 10:38 Pulse 131 H 01/17/19 10:38 Resp 19 01/17/19 10:38 BP 109/75 01/17/19 10:38 Pulse Ox 99 01/17/19 10:38 Primary Care Provider: FAMILY PROVIDER,NO - Medical History PMH: Asthma, HIV (congenital HIV), Pneumonia Denies: Chronic Kidney Disease - Surgical History Surgical History: Cholecystectomy - Family History Family History: States: Unknown Family Hx - Social History Current smoker - smoking cessation education provided: No Alcohol: None Drugs: Denies - Immunization History Hx Tetanus Toxoid Vaccination: Yes Hx Influenza Vaccination: No Hx Pneumococcal Vaccination: No - Home Medications Home Medications: Ambulatory Orders Medication Instructions Recorded Darunavir/Cob/Emtri/Tenof Alaf 1 tab PO DAILY 01/17/19 [Symtuza [id number] mg Tab] Dolutegravir Sodium [Tivicay] 100 mg PO DAILY 01/17/19 - Allergies Allergies/Adverse Reactions: Allergies Allergy/AdvReac Type Severity Reaction Status Date / Time No Known Allergies Allergy Verified 12/19/16 12:49 Review of Systems ROS Statement: Except As Marked, All Systems Reviewed And Found Negative Constitutional: Positive for: Fever ENT: Positive for: Throat Pain Gastrointestinal: Positive for: Vomiting, Diarrhea Physical Exam - Reviewed Nursing Documentation Reviewed: Yes Vital Signs Reviewed: Yes - Physical Exam Appears: Positive for: No Acute Distress (no weakness) Head Exam: Positive for: ATRAUMATIC, NORMOCEPHALIC Skin: Positive for: Normal Color, Warm, Dry Eye Exam: Positive for: Normal appearance, EOMI, PERRL ENT: Positive for: Normal ENT Inspection, Other (no thrush. Dry mucous membranes) Neck: Positive for: Normal, Painless ROM, Supple Cardiovascular/Chest: Positive for: Regular Rate, Rhythm. Negative for: Murmur Respiratory: Positive for: Normal Breath Sounds. Negative for: Respiratory Distress Gastrointestinal/Abdominal: Positive for: Bowel Sounds, Soft, Tenderness (MILD Mid-Epigastric and LLQ tenderness. ) Back: Positive for: Normal Inspection. Negative for: L CVA Tenderness, R CVA Tenderness Extremity: Positive for: Normal ROM Neurological/Psych: Positive for: Awake, Alert, Oriented (x3) Medical Decision Making Medical Decision Making: Time: 1058 Impression: fever and abdominal pain/diarrhea, Rule out dehydration, electrolyte abnormality, colitis, intrabdominal infction, colitis, sepsis Plan: -- VBG -- VBG -- CT Abd/Pelvis IV Contrast ONLY -- CMP -- Lipase -- Magnesium -- Phosphorus -- CBC with Differentials -- PTT -- Prothrombin Time -- CXR Portable -- Sodium Chloride IV 999 mls/hr -- Pepcid 20 mg IVP -- Toradol 15 mg IVP -- Zofran Inj 40 mg IV -- Blood Culture -- Urine Culture -- Senior Vice President CONT -- Rapid Strep Group A Antigen -- Urinalysis 1413 Labs reviewed and significant for low potassium levels. Ordered 20meq potassium chloride. CXR Date of service: 01/17/2019 HISTORY: Sepsis Patient COMPARISON: Comparison made with chest radiograph dated 05/26/2018. TECHNIQUE: 1 view obtained. FINDINGS: LUNGS: No active pulmonary disease. PLEURA: No significant pleural effusion identified, no pneumothorax apparent. CARDIOVASCULAR: No aortic atherosclerotic calcification present. Normal cardiac size. No pulmonary vascular congestion. OSSEOUS STRUCTURES: No significant abnormalities. VISUALIZED UPPER ABDOMEN: Normal. OTHER FINDINGS: None. IMPRESSION: No active disease. Time: 1547 CT ABDOMEN AND PELVIS FINDINGS: LOWER THORAX: Unremarkable. LIVER: Unremarkable. No gross lesion or ductal dilatation. GALLBLADDER AND BILE DUCTS: Unremarkable. PANCREAS: Unremarkable. No gross lesion or ductal dilatation. SPLEEN: Splenomegaly. The spleen measures approximately 17.8 cm in greatest dimension. No focal mass. ADRENALS: Unremarkable. No mass. KIDNEYS AND URETERS: Unremarkable. No hydronephrosis. No solid mass. VASCULATURE: Unremarkable. No aortic aneurysm. No aortic atherosclerotic calcification or mural plaque present. BOWEL: There is a de jesus colitis including the rectum. This is nonspecific and may reflect an infectious or inflammatory etiology. There is no bowel obstruction. There are no abnormal small bowel loops appreciated. APPENDIX: Not identified. No secondary findings to suggest acute appendicitis. PERITONEUM: Unremarkable. No free fluid. No free air. LYMPH NODES: There are multiple mildly enlarged retroperitoneal lymph nodes identified. There is no bulky lymphadenopathy identified. Shotty subcentimeter pelvic lymph nodes are identified bilaterally. BLADDER: Nondistended REPRODUCTIVE: Normal uterus BONES: No acute fracture. OTHER FINDINGS: None. IMPRESSION: Nonspecific de jesus colitis. Possible infectious or inflammatory etiology. Mild retroperitoneal lymphadenopathy. Splenomegaly. Time: 1603 -- Discussed findings of CT Scan with the patient and her mother at [facility]. . Ordering antibiotics for colitis, and admitted for medical service. pt has no dr sallie, tarun admit to med environment friendly landscape designer Dr Villareal. dr villareal accepted pt. ordered GI consult as well. Scribe Attestation: Documented by Tomasa Hernandez, acting as a scribe forAdeline Siegel MD. Provider Scribe Attestation: All medical record entries made by the Scribe were at my direction and personally dictated by me. I have reviewed the chart and agree that the record accurately reflects my personal performance of the history, physical exam, medical decision making, and the department course for this patient. I have also personally directed, reviewed, and agree with the discharge instructions and disposition. - Laboratory Results Result Diagrams: 01/17/19 11:00 01/17/19 11:00 Lab Results: pO2 24 mm/Hg (30-55) L 01/17/19 11:07 VBG pH 7.38 (7.32-7.43) 01/17/19 11:07 VBG pCO2 36 mmHg (40-60) L 01/17/19 11:07 VBG HCO3 20.8 mmol/L 01/17/19 11:07 VBG Total CO2 22.4 mmol/L (22-28) 01/17/19 11:07 VBG O2 Sat (Calc) 47.9 % (40-65) 01/17/19 11:07 VBG Base Excess -3.3 mmol/L (0.0-2.0) L 01/17/19 11:07 VBG Potassium 3.3 mmol/L (3.6-5.2) L 01/17/19 11:07 Sodium 135.0 mmol/L (132-148) 01/17/19 11:07 Chloride 104.0 mmol/L (98-107) 01/17/19 11:07 Glucose 160 mg/dL (65-105) H 01/17/19 11:07 Lactate 1.8 mmol/L (0.7-2.1) 01/17/19 11:07 FiO2 21.0 % 01/17/19 11:07 - ECG O2 Sat by Pulse Oximetry: 99 Disposition - Clinical Impression Clinical Impression: Colitis - Patient ED Disposition Is Patient to be Admitted: Yes Counseled Patient/Family Regarding: Studies Performed, Diagnosis - Disposition Disposition Time: 14:00 Condition: STABLE
[2019-01-17 11:41] LABS: INR 1.4; PROTHROMBIN TIME 16.4 Seconds (9.8-13.1)
[2019-01-17 11:43] LABS: ALB/GLOB RATIO 1.2 (1.0-2.1); ALBUMIN 4.4 g/dL (3.5-5.0); ALT/SGPT 34 U/L (9-52); AST/SGOT 51 U/L (14-36); BLOOD UREA NITROGEN 12 mg/dl (7-17); CALCIUM 8.3 mg/dL (8.4-10.2); GFR NON-AFRICAN AMERICAN > 60; LIPASE 31 U/L (23-300)
--- NOTE | 2019-01-17 12:05 | RAD ---
Date of service: 01/17/2019 HISTORY: Sepsis Patient COMPARISON: Comparison made with chest radiograph dated 05/26/2018. TECHNIQUE: 1 view obtained. FINDINGS: LUNGS: No active pulmonary disease. PLEURA: No significant pleural effusion identified, no pneumothorax apparent. CARDIOVASCULAR: No aortic atherosclerotic calcification present. Normal cardiac size. No pulmonary vascular congestion. OSSEOUS STRUCTURES: No significant abnormalities. VISUALIZED UPPER ABDOMEN: Normal. OTHER FINDINGS: None. IMPRESSION: No active disease.
[2019-01-17] MEDS ORDERED: Potassium Chloride 20 mEq ER Tab PO ONE ×2 (14:13→15:50)
[2019-01-17] MEDS ORDERED: Iohexol 300 100 ML IJ ONE (14:48)
[2019-01-17] MEDS ORDERED: Sodium Chloride 0.9% 50 ML IV ONE (14:48)
[2019-01-17] MEDS ORDERED: Piperacillin/Tazobact 3.375 GM in Sodium Chloride 0.9% 100 ML IVPB STA (15:50)
--- NOTE | 2019-01-17 15:50 | CT ---
Date of service: 01/17/2019 PROCEDURE: CT Abdomen and Pelvis with contrast HISTORY: abd pain hiv w/ llq abd pain COMPARISON: 11/10/2016 TECHNIQUE: Contrast dose: 90 mL Omnipaque 300 Radiation dose: Total exam DLP = 467.24 mGy-cm. This CT exam was performed using one or more of the following dose reduction techniques: Automated exposure control, adjustment of the mA and/or kV according to patient size, and/or use of iterative reconstruction technique. FINDINGS: LOWER THORAX: Unremarkable. LIVER: Unremarkable. No gross lesion or ductal dilatation. GALLBLADDER AND BILE DUCTS: Unremarkable. PANCREAS: Unremarkable. No gross lesion or ductal dilatation. SPLEEN: Splenomegaly. The spleen measures approximately 17.8 cm in greatest dimension. No focal mass. ADRENALS: Unremarkable. No mass. KIDNEYS AND URETERS: Unremarkable. No hydronephrosis. No solid mass. VASCULATURE: Unremarkable. No aortic aneurysm. No aortic atherosclerotic calcification or mural plaque present. BOWEL: There is a de jesus colitis including the rectum. This is nonspecific and may reflect an infectious or inflammatory etiology. There is no bowel obstruction. There are no abnormal small bowel loops appreciated. APPENDIX: Not identified. No secondary findings to suggest acute appendicitis. PERITONEUM: Unremarkable. No free fluid. No free air. LYMPH NODES: There are multiple mildly enlarged retroperitoneal lymph nodes identified. There is no bulky lymphadenopathy identified. Shotty subcentimeter pelvic lymph nodes are identified bilaterally. BLADDER: Nondistended REPRODUCTIVE: Normal uterus BONES: No acute fracture. OTHER FINDINGS: None. IMPRESSION: Nonspecific de jesus colitis. Possible infectious or inflammatory etiology. Mild retroperitoneal lymphadenopathy. Splenomegaly.
[2019-01-17] MEDS ORDERED: Ciprofloxacin 400mg/200ml D5W 400 MG/200 ML BAG IVPB STA (16:01)
[2019-01-17] MEDS ORDERED: metroNIDAZOLE 500mg/100ml NS 100 ML IVPB STA (16:02)
[2019-01-17] MEDS ORDERED: Ciprofloxacin 400mg/200ml D5W 400 MG/200 ML BAG IVPB ONE (17:04)
[2019-01-17] MEDS ORDERED: metroNIDAZOLE 500mg/100ml NS 100 ML IVPB ONE (17:05)
[2019-01-17] MEDS ORDERED: Acetaminophen 160 mg/5 ml UD ONE (17:25)
[2019-01-17] MEDS ORDERED: Acetaminophen 160 mg/5 ml UD PO ONE (17:27)
--- NOTE | 2019-01-17 17:30 | CARD ---
APPROVED REPORT Date of service: 01/17/2019 EKG Measurement Heart [id number] <Conclusion> Sinus tachycardia Nonspecific ST and T wave abnormality Abnormal ECG
[2019-01-17] MEDS: Ciprofloxacin 400mg/200ml D5W 400 MG/200 ML BAG IVPB SCH (22:32)
[2019-01-18] MEDS ORDERED: Vancomycin 500 mg (Oral/Rectal USE) PO SCH (01:00)
[2019-01-18] MEDS: Acetaminophen 650mg/20.3ml solution UD PO PRN ×2 (01:19→18:35)
[2019-01-18] MEDS: metroNIDAZOLE 500mg/100ml NS 100 ML IVPB SCH ×2 (01:20→10:06)
[2019-01-18] MEDS: Vancomycin 500 mg (Oral/Rectal USE) PO SCH ×5 (01:22→22:15)
[2019-01-18] MEDS: Sodium Chloride 0.9% 1,000 ML IV SCH ×3 (01:29→21:00)
--- NOTE | 2019-01-18 06:45 | CP.PCM.HP ---
<Suzanne Resendiz - Last Filed: 01/18/19 10:48> History of Present Illness - History of Present Illness History of Present Illness: 23 y/o female with a PMHx of HIV since (on HAART medicine) presents to the ED for evaluation of a fever and abdominal pain for the last week. Associated with nbnb vomiting that has been worsening for the last 3 days. Also associated weakness. She denies recent antibiotics use though she did stay in a hotel in [place] about 1.5 weeks ago. She reports compliance with HIV treatment. Denies any sick contacts. Otherwise no diarrhea, CP, palpitations, sob, urinary sx, rash on the skin. Patient seen and examined this morning with Dr Luevano, no overnight events, reports mild diffuse abdominal pain, no N/V , afebrile now Present on Admission - Present on Admission Any Indicators Present on Admission: No Review of Systems - Review of Systems All systems: reviewed and no additional remarkable complaints except (HPI) Past Patient History - Infectious Disease Hx of Infectious Diseases: None - Past Medical History & Family History Past Medical History?: Yes - Past Social History Smoking Status: Never Smoked - CARDIAC Hx Cardiac Disorders: No - PULMONARY Hx Respiratory Disorders: Yes Hx Asthma: Yes Hx Pneumonia: Yes - NEUROLOGICAL Hx Neurological Disorder: No - HEENT Hx HEENT Problems: No Hx Macular Degeneration: No (denies) Other/Comment: wears eyeglasses - RENAL Hx Chronic Kidney Disease: No - ENDOCRINE/METABOLIC Hx Endocrine Disorders: No - HEMATOLOGICAL/ONCOLOGICAL Hx Blood Disorders: Yes 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) - INTEGUMENTARY Hx Dermatological Problems: No - MUSCULOSKELETAL/RHEUMATOLOGICAL Hx Musculoskeletal Disorders: No Hx Falls: No - GASTROINTESTINAL Hx Gastrointestinal Disorders: No - GENITOURINARY/GYNECOLOGICAL Hx Genitourinary Disorders: No - PSYCHIATRIC Hx Psychophysiologic Disorder: No Hx Substance Use: No - SURGICAL HISTORY Hx Surgeries: Yes Hx Cholecystectomy: Yes - ANESTHESIA Hx Anesthesia: Yes Hx Anesthesia Reactions: No Hx Malignant Hyperthermia: No Has any member of the family had a problem w/ anesthesia?: No Meds Allergies/Adverse Reactions: Allergies Allergy/AdvReac Type Severity Reaction Status Date / Time No Known Allergies Allergy Verified 12/19/16 12:49 Physical Exam - Constitutional Appears: Non-toxic, No Acute Distress - Head Exam Head Exam: NORMAL INSPECTION - Eye Exam Eye Exam: EOMI, Normal appearance, PERRL - ENT Exam ENT Exam: Mucous Membranes Moist - Neck Exam Neck exam: Positive for: Full Rom. Negative for: Tenderness, Thyromegaly - Respiratory Exam Respiratory Exam: Clear to Auscultation Bilateral, NORMAL BREATHING PATTERN. absent: Chest Wall Tenderness - Cardiovascular Exam Cardiovascular Exam: REGULAR RHYTHM, +S1, +S2. absent: Tachycardia - GI/Abdominal Exam GI & Abdominal Exam: Normal Bowel Sounds, Soft, Tenderness (difusse). absent: Distended, Guarding - Extremities Exam Extremities exam: Negative for: calf tenderness, pedal edema - Neurological Exam Neurological exam: Alert, CN II-XII Intact, Oriented x3 - Psychiatric Exam Psychiatric exam: Normal Mood - Skin Skin Exam: Dry, Warm Results - Vital Signs Recent Vital Signs: Last Vital Signs Temp 98.7 F 01/18/19 04:59 Pulse 79 01/18/19 04:59 Resp 18 01/18/19 04:59 BP 96/59 L 01/18/19 04:59 Pulse Ox 99 01/18/19 04:59 - Labs Result Diagrams: 01/18/19 08:20 01/18/19 08:20 Labs: Laboratory Results - last 24 hr 01/17/19 01/17/19 01/17/19 11:00 11:00 11:00 WBC 5.9 D RBC 4.69 Hgb 11.8 L D Hct 36.3 MCV 77.4 L MCH 25.2 L MCHC 32.5 L RDW 15.2 H Plt Count 220 MPV 8.4 Neut % (Auto) 68.0 Lymph % (Auto) 25.7 [place] % (Auto) 5.9 Eos % (Auto) 0.0 Baso % (Auto) 0.4 Neut # (Auto) 4.0 Lymph # (Auto) 1.5 [place] # (Auto) 0.4 Eos # (Auto) 0.0 Baso # (Auto) 0.0 PT 16.4 H INR 1.4 APTT 29.0 pO2 VBG pH VBG pCO2 VBG HCO3 VBG Total CO2 VBG O2 Sat (Calc) VBG Base Excess VBG Potassium Glucose Lactate FiO2 Sodium 134 Potassium 3.2 L Chloride 102 Carbon Dioxide 18 L Anion Gap 17 BUN 12 Creatinine 0.9 Est GFR ( Amer) > 60 Est GFR (Non-Af Amer) > 60 Random Glucose 149 H Calcium 8.3 L Phosphorus 2.6 Magnesium 1.8 Total Bilirubin 0.6 AST 51 H ALT 34 Alkaline Phosphatase 108 Total Protein 8.1 Albumin 4.4 Globulin 3.7 Albumin/Globulin Ratio 1.2 Lipase 31 Beta HCG, Quant Venous Blood Potassium C. difficile Ag & Toxin Grp A Beta Strep Ag 01/17/19 01/17/19 01/17/19 11:00 11:07 13:34 WBC RBC Hgb Hct MCV MCH MCHC RDW Plt Count MPV Neut % (Auto) Lymph % (Auto) [place] % (Auto) Eos % (Auto) Baso % (Auto) Neut # (Auto) Lymph # (Auto) [place] # (Auto) Eos # (Auto) Baso # (Auto) PT INR APTT pO2 24 L VBG pH 7.38 VBG pCO2 36 L VBG HCO3 20.8 VBG Total CO2 22.4 VBG O2 Sat (Calc) 47.9 VBG Base Excess -3.3 L VBG Potassium 3.3 L Glucose 160 H Lactate 1.8 FiO2 21.0 Sodium 135.0 Potassium Chloride 104.0 Carbon Dioxide Anion Gap BUN Creatinine Est GFR ( Amer) Est GFR (Non-Af Amer) Random Glucose Calcium Phosphorus Magnesium Total Bilirubin AST ALT Alkaline Phosphatase Total Protein Albumin Globulin Albumin/Globulin Ratio Lipase Beta HCG, Quant < 2.39 Venous Blood Potassium 3.3 L C. difficile Ag & Toxin Grp A Beta Strep Ag Negative 01/17/19 22:00 WBC RBC Hgb Hct MCV MCH MCHC RDW Plt Count MPV Neut % (Auto) Lymph % (Auto) [place] % (Auto) Eos % (Auto) Baso % (Auto) Neut # (Auto) Lymph # (Auto) [place] # (Auto) Eos # (Auto) Baso # (Auto) PT INR APTT pO2 VBG pH VBG pCO2 VBG HCO3 VBG Total CO2 VBG O2 Sat (Calc) VBG Base Excess VBG Potassium Glucose Lactate FiO2 Sodium Potassium Chloride Carbon Dioxide Anion Gap BUN Creatinine Est GFR ( Amer) Est GFR (Non-Af Amer) Random Glucose Calcium Phosphorus Magnesium Total Bilirubin AST ALT Alkaline Phosphatase Total Protein Albumin Globulin Albumin/Globulin Ratio Lipase Beta HCG, Quant Venous Blood Potassium C. 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 - resume HIV meds - pain management, zofran - rest of plan as ordered Case discussed with Dr Luevano. <Neo Luevano - Last Filed: 01/23/19 16:53> Results - Vital Signs Recent Vital Signs: Last Vital Signs Temp 97.7 F 01/20/19 08:30 Pulse 61 01/20/19 08:30 Resp 20 01/20/19 08:30 BP 98/63 L 01/20/19 08:30 Pulse Ox 99 01/20/19 08:30 - Labs Result Diagrams: 01/20/19 05:46 01/20/19 05:46 Assessment & Plan - Assessment and Plan (Free Text) Assessment: Patient was personally seen and examined by me in rounds with residents. Available labs and diagnostic data reviewed. Case, Patient's condition and management plan discussed with residents in rounds. Agree with resident's progress note. Plan: As ordered.
[2019-01-18 08:45] LABS: BLOOD UREA NITROGEN 10 mg/dl (7-17); CALCIUM 7.4 mg/dL (8.4-10.2); GFR NON-AFRICAN AMERICAN > 60
[2019-01-18 08:52] LABS: BASO % 0.2 % (0.0-2.0); EOS % 0.1 % (0.0-4.0); HEMOGLOBIN 9.5 g/dL (12.0-16.0); LYMPH # 1.3 K/uL (1.0-4.3); LYMPH % 37.1 % (20.0-40.0); MEAN CELL VOLUME 76.2 fl (81.0-99.0); MEAN CORPUSCULAR HEMOGLOBIN 25.2 pg (27.0-31.0); MEAN CORPUSCULAR HGB CONC 33.1 g/dL (33.0-37.0); MEAN PLATELET VOLUME 8.1 fl (7.2-11.7); MONO # 0.4 K/uL (0.0-0.8); MONO % 11.3 % (0.0-10.0); NEUT # 1.8 K/uL (1.8-7.0); NEUT % 51.3 % (50.0-75.0); NRBC % 0.3 % (0.0-0.0); RBC 3.78 Mil/uL (3.80-5.20); RED CELL DISTRIBUTION WIDTH 15.6 % (11.5-14.5); WHITE BLOOD COUNT 3.6 K/uL (4.8-10.8)
--- NOTE | 2019-01-18 10:07 | CP.PCM.CON ---
History of Present Illness - History of Present Illness History of Present Illness: 23 yo female admitted with abdominal pain, nausea and vomiting. Patient states she has h/o HIV congenitally and is on HAART treatment prescribed by physician in [place]. Patient states she is now HIV negative and has normal [place] cells. Was in [place] at a hotel 1.5 weeks ago and started feeling ill about 4 days ago. Review of Systems - Constitutional Constitutional: Chills - EENT Eyes: absent: Change in Vision Ears: absent: Ear Pain Nose/Mouth/Throat: absent: Epistaxis - Cardiovascular Cardiovascular: absent: Chest Pain - Respiratory Respiratory: absent: Dyspnea - Gastrointestinal Gastrointestinal: Abdominal Pain, Diarrhea, Nausea, Vomiting - Genitourinary Genitourinary: absent: Change in Urinary Stream Past Patient History - Infectious Disease Hx of Infectious Diseases: None - Past Medical History & Family History Past Medical History?: Yes - Past Social History Smoking Status: Never Smoked - CARDIAC Hx Cardiac Disorders: No - PULMONARY Hx Respiratory Disorders: Yes Hx Asthma: Yes Hx Pneumonia: Yes - NEUROLOGICAL Hx Neurological Disorder: No - HEENT Hx HEENT Problems: No Hx Macular Degeneration: No (denies) Other/Comment: wears eyeglasses - RENAL Hx Chronic Kidney Disease: No - ENDOCRINE/METABOLIC Hx Endocrine Disorders: No - HEMATOLOGICAL/ONCOLOGICAL Hx Blood Disorders: Yes 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) - INTEGUMENTARY Hx Dermatological Problems: No - MUSCULOSKELETAL/RHEUMATOLOGICAL Hx Musculoskeletal Disorders: No Hx Falls: No - GASTROINTESTINAL Hx Gastrointestinal Disorders: No - GENITOURINARY/GYNECOLOGICAL Hx Genitourinary Disorders: No - PSYCHIATRIC Hx Psychophysiologic Disorder: No Hx Substance Use: No - SURGICAL HISTORY Hx Surgeries: Yes Hx Cholecystectomy: Yes - ANESTHESIA Hx Anesthesia: Yes Hx Anesthesia Reactions: No Hx Malignant Hyperthermia: No Has any member of the family had a problem w/ anesthesia?: No Meds Allergies/Adverse Reactions: Allergies Allergy/AdvReac Type Severity Reaction Status Date / Time No Known Allergies Allergy Verified 12/19/16 12:49 - Medications Medications: Current Medications Acetaminophen (Tylenol 650mg/20.3ml Solution Ud) 640 mg PO Q6 PRN PRN Reason: fever >100.4 F Last Admin: 01/18/19 01:19 Dose: 640 mg Enoxaparin Sodium (Lovenox) 40 mg SC DAILY [facility]; Protocol Home Med (Darunavir/Cob/Emtri/Tenof Alaf [Symtuza [phone] Mg Tab]) 1 tab PO DAILY [facility] Home Med (Patient's Own Medication) 2 unit PO DAILY [facility]; Protocol Ciprofloxacin (Cipro 400mg/200ml Dsw) 400 mg in 200 mls @ 200 mls/hr IVPB Q12 [facility]; Protocol Last Admin: 01/17/19 22:32 Dose: 200 mls/hr Sodium Chloride (Sodium Chloride 0.9%) 1,000 mls @ 100 mls/hr IV .Q10H [facility] Stop: 01/19/19 00:27 Last Admin: 01/18/19 01:29 Dose: 100 mls/hr Saccharomyces Boulardii (Florastor) 250 mg PO BID [facility] Vancomycin HCl (Vancocin (Oral/Rectal Use)) 125 mg PO Q6 [facility]; Protocol Last Admin: 01/18/19 05:03 Dose: 125 mg Physical Exam - Constitutional Appears: No Acute Distress - Eye Exam Eye Exam: Normal appearance - ENT Exam ENT Exam: Normal Exam - Neck Exam Neck exam: Positive for: Normal Inspection - Respiratory Exam Respiratory Exam: Clear to Auscultation Bilateral - Cardiovascular Exam Cardiovascular Exam: REGULAR RHYTHM, +S1, +S2 - GI/Abdominal Exam GI & Abdominal Exam: Normal Bowel Sounds, Soft, Tenderness Additional comments: Marked epigastric and left sided tenderness Results - Vital Signs Recent Vital Signs: Last Vital Signs Temp 98.4 F 01/18/19 08:02 Pulse 81 01/18/19 08:02 Resp 20 01/18/19 08:02 BP 99/63 L 01/18/19 08:02 Pulse Ox 99 01/18/19 08:02 - Labs Result Diagrams: 01/18/19 08:20 01/18/19 08:20 Labs: Laboratory Results - last 24 hr 01/17/19 01/17/19 01/17/19 11:00 11:00 11:00 WBC 5.9 D RBC 4.69 Hgb 11.8 L D Hct 36.3 MCV 77.4 L MCH 25.2 L MCHC 32.5 L RDW 15.2 H Plt Count 220 MPV 8.4 Neut % (Auto) 68.0 Lymph % (Auto) 25.7 [place] % (Auto) 5.9 Eos % (Auto) 0.0 Baso % (Auto) 0.4 Neut # (Auto) 4.0 Lymph # (Auto) 1.5 [place] # (Auto) 0.4 Eos # (Auto) 0.0 Baso # (Auto) 0.0 PT 16.4 H INR 1.4 APTT 29.0 pO2 VBG pH VBG pCO2 VBG HCO3 VBG Total CO2 VBG O2 Sat (Calc) VBG Base Excess VBG Potassium Glucose Lactate FiO2 Sodium 134 Potassium 3.2 L Chloride 102 Carbon Dioxide 18 L Anion Gap 17 BUN 12 Creatinine 0.9 Est GFR ( Amer) > 60 Est GFR (Non-Af Amer) > 60 Random Glucose 149 H Calcium 8.3 L Phosphorus 2.6 Magnesium 1.8 Total Bilirubin 0.6 AST 51 H ALT 34 Alkaline Phosphatase 108 Total Protein 8.1 Albumin 4.4 Globulin 3.7 Albumin/Globulin Ratio 1.2 Lipase 31 Beta HCG, Quant Venous Blood Potassium C. difficile Ag & Toxin Grp A Beta Strep Ag 01/17/19 01/17/19 01/17/19 11:00 11:07 13:34 WBC RBC Hgb Hct MCV MCH MCHC RDW Plt Count MPV Neut % (Auto) Lymph % (Auto) [place] % (Auto) Eos % (Auto) Baso % (Auto) Neut # (Auto) Lymph # (Auto) [place] # (Auto) Eos # (Auto) Baso # (Auto) PT INR APTT pO2 24 L VBG pH 7.38 VBG pCO2 36 L VBG HCO3 20.8 VBG Total CO2 22.4 VBG O2 Sat (Calc) 47.9 VBG Base Excess -3.3 L VBG Potassium 3.3 L Glucose 160 H Lactate 1.8 FiO2 21.0 Sodium 135.0 Potassium Chloride 104.0 Carbon Dioxide Anion Gap BUN Creatinine Est GFR ( Amer) Est GFR (Non-Af Amer) Random Glucose Calcium Phosphorus Magnesium Total Bilirubin AST ALT Alkaline Phosphatase Total Protein Albumin Globulin Albumin/Globulin Ratio Lipase Beta HCG, Quant < 2.39 Venous Blood Potassium 3.3 L C. difficile Ag & Toxin Grp A Beta Strep Ag Negative 01/17/19 01/18/19 01/18/19 22:00 08:20 08:20 WBC 3.6 L RBC 3.78 L Hgb 9.5 L D Hct 28.8 L MCV 76.2 L MCH 25.2 L MCHC 33.1 RDW 15.6 H Plt Count 169 MPV 8.1 Neut % (Auto) 51.3 Lymph % (Auto) 37.1 [place] % (Auto) 11.3 H Eos % (Auto) 0.1 Baso % (Auto) 0.2 Neut # (Auto) 1.8 Lymph # (Auto) 1.3 [place] # (Auto) 0.4 Eos # (Auto) 0.0 Baso # (Auto) 0.0 PT INR APTT pO2 VBG pH VBG pCO2 VBG HCO3 VBG Total CO2 VBG O2 Sat (Calc) VBG Base Excess VBG Potassium Glucose Lactate FiO2 Sodium 136 Potassium 3.1 L Chloride 108 H Carbon Dioxide 19 L Anion Gap 12 BUN 10 Creatinine 0.7 Est GFR ( Amer) > 60 Est GFR (Non-Af Amer) > 60 Random Glucose 88 Calcium 7.4 L Phosphorus Magnesium Total Bilirubin AST ALT Alkaline Phosphatase Total Protein Albumin Globulin Albumin/Globulin Ratio Lipase Beta HCG, Quant Venous Blood Potassium C. difficile Ag & Toxin Positive H Grp A Beta Strep Ag - Imaging and Cardiology CT scan - abdomen Status: Image reviewed by me, Report reviewed by me Assessment & Plan (1) C. difficile colitis Assessment and Plan: Patient with colitis on CT and is C. diff toxin and antigen positive. No recent antibiotics though she did stay in a hotel in [place] about a week and a half ago. Start vancomycin 125 mg QID x 10 days. Contact her ID physician in [place] for recent lab results. Status: Acute
[2019-01-18] MEDS: [UNRECOGNIZED DRUG - OTHER] PO SCH (10:48)
[2019-01-18] MEDS: Saccharomyces Boulardi 250 mg Cap PO SCH ×2 (10:49→18:34)
[2019-01-18] MEDS: Enoxaparin 40 mg Syringe SC SCH (10:49)
[2019-01-18] MEDS ORDERED: Potassium Chloride 20 mEq ER Tab PO ONE (10:51)
[2019-01-18] MEDS: DOLUTEGRAVIR 50 MG PO SCH (10:52)
[2019-01-18] MEDS: Ciprofloxacin 400mg/200ml D5W 400 MG/200 ML BAG IVPB SCH ×2 (10:55→20:58)
[2019-01-18] MEDS: KCL 40MEQ/NS 1L 1,000 ML IV SCH ×2 (15:23→22:09)
[2019-01-19] MEDS: Vancomycin 500 mg (Oral/Rectal USE) PO SCH ×4 (05:12→22:23)
[2019-01-19 05:51] LABS: BASO % 0.3 % (0.0-2.0); EOS % 0.7 % (0.0-4.0); HEMOGLOBIN 9.6 g/dL (12.0-16.0); LYMPH # 1.3 K/uL (1.0-4.3); LYMPH % 61.5 % (20.0-40.0); MEAN CELL VOLUME 75.2 fl (81.0-99.0); MEAN CORPUSCULAR HEMOGLOBIN 25.4 pg (27.0-31.0); MEAN CORPUSCULAR HGB CONC 33.7 g/dL (33.0-37.0); MEAN PLATELET VOLUME 8.7 fl (7.2-11.7); MONO # 0.2 K/uL (0.0-0.8); MONO % 9.8 % (0.0-10.0); NEUT # 0.6 K/uL (1.8-7.0); NEUT % 27.7 % (50.0-75.0); NRBC % 0.3 % (0.0-0.0); RBC 3.79 Mil/uL (3.80-5.20); RED CELL DISTRIBUTION WIDTH 15.5 % (11.5-14.5); WHITE BLOOD COUNT 2.1 K/uL (4.8-10.8)
[2019-01-19 05:57] LABS: ALB/GLOB RATIO 1.1 (1.0-2.1); ALBUMIN 3.2 g/dL (3.5-5.0); ALT/SGPT 30 U/L (9-52); AST/SGOT 45 U/L (14-36); BLOOD UREA NITROGEN 8 mg/dl (7-17); CALCIUM 7.9 mg/dL (8.4-10.2); GFR NON-AFRICAN AMERICAN > 60
--- NOTE | 2019-01-19 07:38 | PQF ---
PROVIDER RESPONSE TEXT: Sepsis present REVIEWER QUERY TEXT: Conflicting Documentation Clarification A single mention of Sepsis is listed in the ER record and then the diagnosis is dropped. Please docu ment if the condition is: -- Confirmed and current -- Confirmed, treated and resolved -- Ruled out -- Other, please specify ER documentation of : presents to the ED for evaluation of a fever and abdominal pain. 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 - resume HIV meds - pain management, zofran The patient's Clinical Indicators include: -- Query created by: Vidhya Odonnell on 01/18/2019 1:28 PM Electronically signed by: Neo Luevano 01/19/2019 7:34 AM
[2019-01-19] MEDS: Ciprofloxacin 400mg/200ml D5W 400 MG/200 ML BAG IVPB SCH (09:41)
[2019-01-19] MEDS: DOLUTEGRAVIR 50 MG PO SCH (09:41)
[2019-01-19] MEDS: Saccharomyces Boulardi 250 mg Cap PO SCH ×2 (09:42→16:22)
[2019-01-19] MEDS: Enoxaparin 40 mg Syringe SC SCH (09:42)
[2019-01-19] MEDS: [UNRECOGNIZED DRUG - OTHER] PO SCH (09:42)
[2019-01-19] MEDS: KCL 40MEQ/NS 1L 1,000 ML IV SCH ×2 (10:00→15:06)
--- NOTE | 2019-01-19 14:23 | PN ---
DATE: 01/19/2019 SUBJECTIVE: The patient seen and examined. Interim events noted. The patient remains in progressive care unit on telemetry monitoring. The patient with septicemia, C. diff colitis, HIV positive. The patient feels little better, still has episodes of diarrhea. No blood. No chest pain or shortness of breath. Complains of generalized weakness. PHYSICAL EXAMINATION: GENERAL: The patient is in no acute distress. VITAL SIGNS: Stable. HEART: S1 and S2. Normal and regular. LUNGS: Good bilateral air exchange. ABDOMEN: Soft, nontender. No sign of acute abdomen. No guarding, no rigidity. No rebound. Bowel sounds are present and normal. EXTREMITIES: No edema, no calf swelling, no tenderness, no acute ischemia. CENTRAL NERVOUS SYSTEM: Exam is essentially unchanged. DIAGNOSTIC DATA: Available diagnostic data reviewed. Telemetry monitoring does not show significant arrhythmias. ASSESSMENT AND PLAN: Overall, the patient's general medical condition is stable. Plan as ordered. Neo Luevano MD
--- NOTE | 2019-01-20 00:01 | CP.PCM.PN ---
Subjective - Date & Time of Evaluation Date of Evaluation: 01/19/19 Time of Evaluation: 23:57 - Subjective Subjective: Patient feeling much better today. Tolerating diet Objective - Vital Signs/Intake and Output Vital Signs (last 24 hours): Temp Pulse Resp BP Pulse Ox 98.9 F 76 18 108/72 100 01/19/19 20:40 01/19/19 20:40 01/19/19 20:40 01/19/19 20:40 01/19/19 20:40 - Medications Medications: Current Medications Acetaminophen (Tylenol 650mg/20.3ml Solution Ud) 640 mg PO Q6 PRN PRN Reason: fever >100.4 F Last Admin: 01/18/19 18:35 Dose: 640 mg Enoxaparin Sodium (Lovenox) 40 mg SC DAILY [facility]; Protocol Last Admin: 01/19/19 09:42 Dose: 40 mg Home Med (Darunavir/Cob/Emtri/Tenof Alaf [Symtuza [phone] Mg Tab]) 1 tab PO DAILY [facility] Last Admin: 01/19/19 09:42 Dose: 1 tab Home Med (Patient's Own Medication) 2 unit PO DAILY [facility]; Protocol Last Admin: 01/19/19 09:41 Dose: 2 unit Oral Electrolytes (Kcl 40meq/ 0.9% 1l) 1,000 mls @ 65 mls/hr IV .[id number] [facility] Stop: 01/20/19 14:28 Last Admin: 01/19/19 15:06 Dose: 65 mls/hr Saccharomyces Boulardii (Florastor) 250 mg PO BID [facility] Last Admin: 01/19/19 16:22 Dose: 250 mg Vancomycin HCl (Vancocin (Oral/Rectal Use)) 125 mg PO Q6 [facility]; Protocol Last Admin: 01/19/19 22:23 Dose: 125 mg - Labs Labs: 01/19/19 04:40 01/19/19 04:40 PT 16.4 Seconds (9.8-13.1) H 01/17/19 11:00 INR 1.4 01/17/19 11:00 APTT 29.0 Seconds (25.6-37.1) 01/17/19 11:00 - Head Exam Head Exam: ATRAUMATIC - Eye Exam Eye Exam: Normal appearance - ENT Exam ENT Exam: Normal Exam - Neck Exam Neck Exam: Full ROM - Respiratory Exam Respiratory Exam: NORMAL BREATHING PATTERN - Cardiovascular Exam Cardiovascular Exam: REGULAR RHYTHM - GI/Abdominal Exam GI & Abdominal Exam: Soft, Normal Bowel Sounds. absent: Tenderness Assessment and Plan (1) C. difficile colitis Assessment & Plan: Clinically improving. Will stop Cipro. Status: Acute
[2019-01-20 00:39] VITALS: PULSE 61
[2019-01-20] MEDS: Vancomycin 500 mg (Oral/Rectal USE) PO SCH ×2 (04:08→09:20)
[2019-01-20] MEDS: KCL 40MEQ/NS 1L 1,000 ML IV SCH (06:51)
[2019-01-20 07:05] LABS: HEMOGLOBIN 9.7 g/dL (12.0-16.0); MEAN CELL VOLUME 75.4 fl (81.0-99.0); MEAN CORPUSCULAR HEMOGLOBIN 24.9 pg (27.0-31.0); RBC 3.88 Mil/uL (3.80-5.20)
[2019-01-20 07:08] LABS: ALB/GLOB RATIO 1.1 (1.0-2.1); ALBUMIN 3.3 g/dL (3.5-5.0); ALT/SGPT 31 U/L (9-52); AST/SGOT 39 U/L (14-36); BLOOD UREA NITROGEN 10 mg/dl (7-17); GFR NON-AFRICAN AMERICAN > 60
[2019-01-20 07:10] LABS: WHITE BLOOD COUNT 1.8 K/uL (4.8-10.8)
[2019-01-20 08:31] VITALS: BP 98/63; RESP 20; TEMP 97.7; O2SAT 99
[2019-01-20] MEDS: [UNRECOGNIZED DRUG - OTHER] PO SCH (09:03)
[2019-01-20] MEDS: DOLUTEGRAVIR 50 MG PO SCH (09:16)
[2019-01-20] MEDS: Enoxaparin 40 mg Syringe SC SCH ×2 (09:21→09:26)
[2019-01-20] MEDS: Saccharomyces Boulardi 250 mg Cap PO SCH (09:21)
--- NOTE | 2019-01-20 10:04 | PN ---
DATE: 01/20/2019 SUBJECTIVE: The patient seen and examined. Interim events noted. Consults noted and appreciated. Gastroenterology interventions noted and appreciated. The patient remains in progressive care unit on telemetry monitoring in isolation bed. Feels much better. Diarrhea resolved, abdominal pain resolved, tolerating diet well. No chest pain. No shortness of breath. PHYSICAL EXAMINATION: GENERAL: The patient is in no acute distress. VITAL SIGNS: Stable. HEART: S1, S2. Normal, regular. LUNGS: Good bilateral air exchange. ABDOMEN: Soft, nontender. No organomegaly noted. No sign of acute abdomen. No guarding, no rigidity, no rebound. Bowel sounds are present and normal. EXTREMITIES: No edema, no calf swelling, no tenderness. No acute ischemia. CENTRAL NERVOUS SYSTEM: Exam is essentially unchanged. DIAGNOSTIC DATA: Available diagnostic data reviewed. ASSESSMENT AND PLAN: Overall, the patient's general medical condition is stable. Plan as ordered. Neo Luevano MD
--- NOTE | 2019-01-22 14:37 | PQF ---
PROVIDER RESPONSE TEXT: HIV w/o AIDS REVIEWER QUERY TEXT: HIV Clarification and Associated Conditions HIV (Human immunodeficiency virus) is documented in the medical record. Please specify if -- Symptomatic -- Asymptomatic Also please include any associated conditions, if applicable. H and P includes: congenital HIV:- resume HIV meds GI consult includes: Patient states she has h/o HIV congenitally and is on HAART treatment prescribed by physician in [place].Patient states she is now HIV negative and has normal [place] cells. Contact her ID physician in [place] for recent lab results. The patient's Clinical Indicators include: --- Query created by: Vidhya Odonnell on 01/18/2019 1:24 PM Electronically signed by: 01/22/2019 2:34 PM
== END 2019-01-20 11:30 | disposition home or self-care (01) | DRG 872 ==
LOC: H.ER 10:14 → H.ERHOLD 16:03 → H.TEL 18:09
PROVIDERS: ADMIT Internal Medicine; ATTEND Internal Medicine
DX: A41.9 Sepsis, unspecified organism (principal); A04.72 Enterocolitis due to Clostridium difficile, not specified as recurrent; E87.6 Hypokalemia; Z21 Asymptomatic human immunodeficiency virus [HIV] infection status; J45.909 Unspecified asthma, uncomplicated; Z87.01 Personal history of pneumonia (recurrent)